=== PATIENT | male | born 1935 | race Caucasian/White ===

== ENCOUNTER 2017-01-17 10:04 | Inpatient (IN) ==
--- NOTE | 2017-01-17 10:14 | Emergency Department Report ---
General Adult HPI - General Chief complaint: Medical Emergency Stated complaint: low hemoglobin Time Seen by Provider: 01/17/17 10:14 Source: patient, family Mode of arrival: ambulatory Limitations: no limitations - History of Present Illness HPI narrative: Patient is an 81-year-old male presents emergent for further evaluation of low hemoglobin. Patient has been having anemia problems following Dr. Lawson's office had CBC drawn 01/12 showing hemoglobin 8.6, repeat 01/14 showing hemoglobin 7.6... Patient increasing weakness, now tachycardic with low O2 sats. Patient normally uses oxygen at night, however/today's acute oxygen during the day. Patient told by doctors office to present to the ER for evaluation. Onset (ago): day(s) - Related Data Home Medications Medication Instructions Recorded Confirmed Albuterol Sulfate [Proair Hfa] 1 puff INH Q4H PRN 01/17/17 01/17/17 Aspirin [Adult Low Dose Aspirin EC] 81 mg PO DAILY 01/17/17 01/17/17 Bumetanide Tab [Bumex Tab] 1 mg PO BID 01/17/17 01/17/17 Carvedilol [Carvedilol] 12.5 mg PO DAILY 01/17/17 01/17/17 Clopidogrel Bisulfate [Clopidogrel] 75 mg PO DAILY 01/17/17 01/17/17 Glimepiride [Amaryl] 1 mg PO DAILY 01/17/17 01/17/17 Levothyroxine Sodium 25 mcg PO ACB 01/17/17 01/17/17 Multivitamin [Multivitamins] 1 cap PO DAILY 01/17/17 01/17/17 Coggon-3 Fatty Acids [Coggon-3] 3,000 mg PO DAILY 01/17/17 01/17/17 Potassium Chloride [Klor-Con 10] 5 meq PO DAILY 01/17/17 01/17/17 Spironolactone [Aldactone] 25 mg PO DAILY 01/17/17 01/17/17 Allergies Allergy/AdvReac Type Severity Reaction Status Date / Time No Known Allergies Allergy Verified 01/17/17 10:48 Review of Systems Constitutional: Reports: weakness. Denies: fever, chills ENT: Denies: throat pain, dental pain Cardiovascular: Reports: dyspnea on exertion. Denies: chest pain, palpitations Respiratory: Denies: cough, dyspnea Gastrointestinal: Denies: abdominal pain, nausea, vomiting, diarrhea, constipation Genitourinary: Denies: dysuria, frequency Neurological: Denies: headache, weakness Psychiatric: Denies: anxiety, depression PFS Patient Stated Medical History Syncope Yes Cataracts Yes Hypertension Yes Myocardial Infarction Yes Chronic Obstructive Pulmonary Yes Disease (COPD) Diabetes Mellitus Type 2 Yes Anemia Yes: PRESENTLY Clinic Medical History (Last Updated 01/14/17 @ 09:59 by Fartun Call MA) Anemia (Chronic Medical) ETIOLOGY UNCLEAR Renal disease (Chronic Medical) Type II diabetes mellitus (Chronic Medical) Hyperlipemia (Chronic Medical) HTN (hypertension) (Chronic Medical) Afib (Chronic Medical) CHF (congestive heart failure) (Chronic Medical) 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 Colonoscopy - Social History Smoking status: Current every day smoker Substance use type: does not use Alcohol intake frequency: does not drink Physical Exam - General General appearance: alert, in no apparent distress - ENT ENT exam: Present: normal oropharynx, mucous membranes moist, TM's normal bilaterally - Neck Neck exam: Present: full ROM, trachea midline - Chest Chest inspection: Present: symmetric chest wall rise. Absent: tenderness - Respiratory Respiratory exam: Present: normal lung sounds bilaterally. Absent: respiratory distress, wheezes, stridor - Cardiovascular Cardiovascular exam: Present: regular rate, normal rhythm, normal heart sounds - Abdominal Exam Abdominal exam: Present: soft. Absent: distention, tenderness, guarding - Rectal Exam Rectal exam: Present: normal inspection, normal rectal tone, heme (+) stool. Absent: black stool, bloody stool, fecal impaction, hemorrhoids, mass, tenderness - Skin Skin exam: Present: warm, dry, pallor - Neurological Exam Neurological exam: Present: alert, oriented X3 - Psychiatric Psychiatric exam: Present: normal affect, normal mood Course Vital Signs Temperature 98 F 01/17/17 10:05 Pulse Rate 106 H 01/17/17 10:05 Respiratory Rate 01/17/17 10:05 Blood Pressure 129/58 01/17/17 10:05 Pulse Oximetry 83 L 01/17/17 10:05 Temperature 98 F 01/17/17 10:05 Pulse Rate 83 01/17/17 10:39 Respiratory Rate 01/17/17 10:05 Blood Pressure 139/63 01/17/17 10:39 Pulse Oximetry 83 L 01/17/17 10:13 Medical Decision Making - Differential Diagnosis acute blood loss anemia, chronic anemia, GI bleed - Medical Records Medical records reviewed: Yes: I reviewed the patient's medical records. - Lab Data Result diagrams: 01/17/17 10:26 01/17/17 10:26 Lab Results 01/17/17 01/17/17 01/17/17 Range/Units 10:26 10:26 10:26 WBC 7.4 (4.5-11.0) T/MM3 RBC 3.08 L (4.50-5.90) M/MM3 Hgb 8.2 L (13.5-17.5) GM/DL Hct 27.6 L (41-53) % MCV 89.6 (80-100) UM3 MCH 26.6 (26-34) UUG MCHC 29.7 L (31-37) GM/DL RDW Std Deviation 53.7 H (36.9-50.2) FL Plt Count 188 (130-400) T/MM3 MPV 9.8 (9.4-12.4) UM3 Immature Gran % (Auto) 0.1 (0.0-0.5) % Neut % (Auto) 83.9 H (33-66) % Lymph % (Auto) 7.6 L (23-45) % Garvin % (Auto) 6.2 (0-9.0) % Eos % (Auto) 1.9 (0-4) % Baso % (Auto) 0.3 (0-2) % Neut # 6.2 (1.8-7.7) T/MM3 Lymph # 0.6 L (1-4.8) T/MM3 Garvin # 0.5 (0-0.8) T/MM3 Eos # 0.1 (0-0.5) T/MM3 Baso # 0.0 (0-0.2) T/MM3 Abs Immat Gran (auto) 0.01 (0.00-0.03) T/MM3 INR 1.42 H (0.99-1.21) APTT 28.5 (24-36) SEC Turbidity < 20 (0-20) Sodium 141 (134-144) MEQ/L Potassium 4.7 (3.6-5) MEQ/L Chloride 104 (98-107) MEQ/L Carbon Dioxide 27 (22-30) MEQ/L Anion Gap 10 (5-15) MEQ/L BUN 55.0 H* (9-20) MG/DL Creatinine 2.1 H (0.8-1.5) MG/DL GFR Calculation 30 BUN/Creatinine Ratio 26 (6-26) RATIO Glucose 159 H (75-110) MG/DL Calculated Osmolality 289 H (261-280) MOSM/KG Calcium 8.9 (8.4-10.2) MG/DL Total Bilirubin 1.00 (0.20-1.30) MG/DL Icterus Index < 2 (0-7) AST 22 (17-59) U/L ALT 33 (21-72) U/L Alkaline Phosphatase 74 (38-126) U/L Total Protein 7.5 (6.3-8.2) G/DL Albumin 3.9 (3.5-5.0) G/DL Globulin 3.6 (2.4-3.6) G/DL Albumin/Globulin Ratio 1.1 (1.1-2.2) RATIO Specimen Hemolysis < 15 (0-25) Blood Type Antibody Screen Crossmatch (AHG) 01/17/17 Range/Units 10:26 WBC (4.5-11.0) T/MM3 RBC (4.50-5.90) M/MM3 Hgb (13.5-17.5) GM/DL Hct (41-53) % MCV (80-100) UM3 MCH (26-34) UUG MCHC (31-37) GM/DL RDW Std Deviation (36.9-50.2) FL Plt Count (130-400) T/MM3 MPV (9.4-12.4) UM3 Immature Gran % (Auto) (0.0-0.5) % Neut % (Auto) (33-66) % Lymph % (Auto) (23-45) % Garvin % (Auto) (0-9.0) % Eos % (Auto) (0-4) % Baso % (Auto) (0-2) % Neut # (1.8-7.7) T/MM3 Lymph # (1-4.8) T/MM3 Garvin # (0-0.8) T/MM3 Eos # (0-0.5) T/MM3 Baso # (0-0.2) T/MM3 Abs Immat Gran (auto) (0.00-0.03) T/MM3 INR (0.99-1.21) APTT (24-36) SEC Turbidity (0-20) Sodium (134-144) MEQ/L Potassium (3.6-5) MEQ/L Chloride (98-107) MEQ/L Carbon Dioxide (22-30) MEQ/L Anion Gap (5-15) MEQ/L BUN (9-20) MG/DL Creatinine (0.8-1.5) MG/DL GFR Calculation BUN/Creatinine Ratio (6-26) RATIO Glucose (75-110) MG/DL Calculated Osmolality (261-280) MOSM/KG Calcium (8.4-10.2) MG/DL Total Bilirubin (0.20-1.30) MG/DL Icterus Index (0-7) AST (17-59) U/L ALT (21-72) U/L Alkaline Phosphatase (38-126) U/L Total Protein (6.3-8.2) G/DL Albumin (3.5-5.0) G/DL Globulin (2.4-3.6) G/DL Albumin/Globulin Ratio (1.1-2.2) RATIO Specimen Hemolysis (0-25) Blood Type A Positive Antibody Screen Negative Crossmatch (AHG) See Detail Disposition Clinical Impression: GI bleed Qualifiers: GI bleed type/associated pathology: unspecified gastrointestinal hemorrhage type Qualified Code(s): K92.2 - Gastrointestinal hemorrhage, unspecified Disposition: Acute Care Hosp, Other Condition: Stable - Seen By: physician
[2017-01-17] MEDS ORDERED: NS 1,000 ML IV SCH (10:15)
[2017-01-17] MEDS: SALINE FLUSH 10ml SYRINGE IVF PRN ×2 (10:35→14:51)
--- OUTSIDE RECORDS SUMMARY | 2017-01-17 10:52 | External Medical Summary ---
:1935 Author Organization [facility] Summary purpose CCDA Sent to [facility] Chief Complaint and Reason for Visit Admit Diagnosis 1 GOUT NOS Problem list No authorized problems tracked for continuity of care are available for this visit. Encounters No authorized problems tracked for encounter diagnoses are available for this visit. Medications No home medications recorded for this patient visit Allergies, adverse reactions, alerts No allergy information is available for this patient. Immunizations No immunizations recorded for this patient visit Relevant diagnostic tests and/or laboratory data No authorized results are available for this patient visit History of procedures Procedure Code Code Type Description Date Performed Performing Physician 57869 CPT-4 OFFICE/OUTPATIENT VISIT 09-25-2014 YEN OBREGON Functional status No functional or cognitive status observations are available for this visit. Vital signs No authorized vital signs are available for this visit. Social history No Social History or smoking status observations were recorded for this visit. ( Unknown if ever smoked.) Treatment Plan No treatment plan text is available for this visit. Hospital discharge instructions No discharge instruction text is available for this visit.
--- OUTSIDE RECORDS SUMMARY | 2017-01-17 10:52 | External Medical Summary ---
:1935 Author Organization [facility] Summary purpose CCDA Sent to [facility] Chief Complaint and Reason for Visit Admit Diagnosis 1 OTH SEBORRHEIC KERATOSIS Problem list No authorized problems tracked for [...] Code Type Description Date Performed Performing Physician 60603 CPT-4 OFFICE/OUTPATIENT VISIT 07-23-2014 YEN OBREGON Functional status No functional or [...]
--- OUTSIDE RECORDS SUMMARY | 2017-01-17 10:52 | External Medical Summary ---
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 Unknown Non Drug Allergy September, Unknown SOCIAL HISTORY No smoking Hx information available PLAN OF CARE Activity Details Follow Up Appt with [facility] when has appt Reason:null VITAL SIGNS Height 70 in 2016-09-13 Weight 165 lbs 2016-09-13 BMI 23.67 kg/m2 2016-09-13 Oximetry 94 % 2016-09-13 Heart Rate 76 /min 2016-09-13 Blood pressure systolic 114 mm Hg 2016-09-13 Blood pressure diastolic 70 mm Hg 2016-09-13 MEDICATIONS Medication Instructions Dosage Frequency Start End Duration Status Date Date Furosemide 40 MG Orally Once a 1 tablet 24h Active day Carvedilol 3.125 Orally bid 1 tab 12h Active MG Plavix 75 MG Orally Once a 1 tablet 24h Active day Levothyroxine 25 Orally Once a 1 tablet on 24h Active MCG day an empty stomach in the morning Warfarin Sodium 5 Orally Once a 1 tablet 24h Active MG day Simvastatin 20 MG Orally Once a 1 tablet in 24h Active day the evening Carvedilol 6.25 Orally bid 1 tab 12h Active MG Benazepril-Hydroc Orally Once a 1 tablet 24h Active hlorothiazide day .5 MG Isosorbide Orally Twice a 1 tablet 12h Active Mononitrate 15 mg day Potassium Orally Once a 1 tablet 24h Active Chloride ER 10 day with food MEQ RESULTS No Results PROCEDURES Procedure Date Ordered Related Diagnosis Body Site Office Visit, Est Pt., Level 3 September 13, 2016 IMMUNIZATIONS No Known Immunizations
--- OUTSIDE RECORDS SUMMARY | 2017-01-17 10:52 | External Medical Summary ---
:1935 Author Organization [facility] Summary purpose CCDA Sent to [facility] Chief Complaint and Reason for Visit [...] Code Type Description Date Performed Performing Physician 71086 CPT-4 DESTRUCT PREMALG 07-23-2014 YENWaldo SHINE LESION 42252 CPT-4 DESTRUCT PREMALG LES 07-23-2014 YEN SHINE 2-14 83764 CPT-4 BIOPSY SKIN LESION 07-23-2014 YEN SHINE 07699 CPT-4 BIOPSY SKIN ADD-ON 07-23-2014 YEN SHINE Functional status No functional or cognitive status [...]
--- OUTSIDE RECORDS SUMMARY | 2017-01-17 10:52 | External Medical Summary ---
:1935 Author Organization [facility] Summary purpose CCDA Sent to [facility] Chief Complaint and Reason for Visit Admit Diagnosis 1 DM2/NOS UNCOMP NSU Problem list No authorized problems tracked for continuity of care are available for this visit. Encounters No authorized problems tracked for encounter diagnoses are available for this visit. Medications No home medications recorded for this patient visit Allergies, adverse reactions, alerts No allergy information is available for this patient. Immunizations No immunizations recorded for this patient visit Relevant diagnostic tests and/or laboratory data RESULTS Chemistry Group [id number]:22:00 Result Normal Range Units Albumin 4.1 3.5-5.0 g/dl Total Protein 7.0 6.3-8.2 g/dl AST 24 17-59 U/L ALP 76 38-126 U/L ALT 30 21-72 U/L Bilirubin Total 1.0 0.2-1.3 mg/dl Sodium 144 137-145 mmol/L Potassium 4.0 3.6-5.0 mmol/L Chloride 107 98-107 mmol/L CO2 25 22-30 mmol/L BUN 20 9-20 mg/dl Creatinine 1.2 0.8-1.5 mg/dl Glucose 103 75-110 mg/dl Calcium 9.0 8.4-10.2 mg/dl AG Ratio 1.4 1.1-2.2 g/dl Globulin 3.0 2.3-3.5 g/dl Cholesterol 128 0-200 mg/dl Triglycerides 122 0-150 mg/dl HDL L 38 40-60 mg/dl LDL 66 0-130 mg/dl VLDL 24 5-40 mg/dl Cholesterol/HDL Ratio 3.38 0-5 Ratio Coagulation Group :22:00 Result Normal Range Units Protime HC 65.4 Sec -Result verified by repeat analysis./mkv -Critical value reported verbally to EDUARDO Salinas 11/20/14 @ 1028./mkv INR HC 6.79 0.9-1.3 NORMAL (NON OAT) 2.0-3.0 THERAPEUTIC ( OAT) 2.5-3.5 HEART VALVE/EMBOLISM (OAT) PROTIME NORMAL RANGE=9.3 - 11.4 Seconds -Result verified by repeat analysis./mkv -Critical value reported verbally to EDUARDO Salinas 11/20/14 @ 1028./mkv Comprehensive Metabolic Panel :22:00 Result Normal Range Units Albumin 4.1 3.5-5.0 g/dl Total Protein 7.0 6.3-8.2 g/dl AST 24 17-59 U/L ALP 76 38-126 U/L ALT 30 21-72 U/L Bilirubin Total 1.0 0.2-1.3 mg/dl Sodium 144 137-145 mmol/L Potassium 4.0 3.6-5.0 mmol/L Chloride 107 98-107 mmol/L CO2 25 22-30 mmol/L BUN 20 9-20 mg/dl Creatinine 1.2 0.8-1.5 mg/dl Glucose 103 75-110 mg/dl Calcium 9.0 8.4-10.2 mg/dl AG Ratio 1.4 1.1-2.2 g/dl Globulin 3.0 2.3-3.5 g/dl Lipid Profile :22:00 Result Normal Range Units Cholesterol 128 0-200 mg/dl Triglycerides 122 0-150 mg/dl HDL L 38 40-60 mg/dl LDL 66 0-130 mg/dl VLDL 24 5-40 mg/dl Cholesterol/HDL Ratio 3.38 0-5 Ratio Hepatic Function Profile :22:00 Result Normal Range Units Albumin 4.1 3.5-5.0 g/dl Total Protein 7.0 6.3-8.2 g/dl AG Ratio 1.4 1.1-2.2 g/dl Globulin 3.0 2.3-3.5 g/dl AST 24 17-59 U/L ALP 76 38-126 U/L ALT 30 21-72 U/L Bilirubin Total 1.0 0.2-1.3 mg/dl Basic Metabolic Panel :22:00 Result Normal Range Units Sodium 144 137-145 mmol/L Potassium 4.0 3.6-5.0 mmol/L Chloride 107 98-107 mmol/L CO2 25 22-30 mmol/L BUN 20 9-20 mg/dl Creatinine 1.2 0.8-1.5 mg/dl Glucose 103 75-110 mg/dl Calcium 9.0 8.4-10.2 mg/dl Electrolyte Panel [id number]:00 Result Normal Range Units Sodium 144 137-145 mmol/L Potassium 4.0 3.6-5.0 mmol/L Chloride 107 98-107 mmol/L CO2 25 22-30 mmol/L History of procedures Procedure Code Code Type Description Date Performed Performing Physician 85192 CPT-4 ROUTINE VENIPUNCTURE 11-20-2014 AD MCDANIEL 91189 CPT-4 GLYCOSYLATED HEMOGLOBIN 11-20-2014 AD MCDANIEL TEST G0103 CPT-4 PSA SCREENING 11-20-2014 AD MCDANIEL 98353 CPT-4 ASSAY THYROID STIM 11-20-2014 AD MCDANIEL HORMONE 60501 CPT-4 LIPID PANEL 11-20-2014 AD MCDANIEL 22173 CPT-4 COMPREHEN METABOLIC 11-20-2014 AD MCDANIEL PANEL 10395 CPT-4 PROTHROMBIN TIME 11-20-2014 AD MCDANIEL Functional status No functional or cognitive status [...]
--- OUTSIDE RECORDS SUMMARY | 2017-01-17 10:52 | External Medical Summary ---
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 Unknown Non Drug Allergy Aug, Unknown SOCIAL HISTORY No smoking Hx information available PLAN OF CARE VITAL SIGNS Height 70 in 2016-08-12 Weight 164.2 lbs 2016-08-12 BMI 23.56 kg/m2 2016-08-12 Oximetry 96 % 2016-08-12 Heart Rate 64 /min 2016-08-12 Blood pressure systolic 120 mm Hg 2016-08-12 Blood pressure diastolic 70 mm Hg 2016-08-12 MEDICATIONS Medication Instructions Dosage Frequency Start End Duration Status Date Date Furosemide 40 MG Orally Once a 1 tablet 24h Active day Plavix 75 MG Orally Once a 1 tablet 24h Active day Warfarin Sodium 5 Orally Once a 1 tablet 24h Active MG day Isosorbide Orally Twice a 1 tablet 12h Active Mononitrate 15 mg day Benazepril-Hydroc Orally Once a 1 tablet 24h Active hlorothiazide day 20-12.5 MG Carvedilol 3.125 Orally bid 1 tab 12h Active MG Klor-Con 10 10 Orally qd 1 tablet 24h Active MEQ with food Metformin HCl 500 Orally Twice a 1 tablet 12h Active MG day with meals Levothyroxine 25 Orally Once a 1 tablet on 24h Active MCG day an empty stomach in the morning RESULTS Name Result Date Reference Range AtriaECW PROCEDURES Procedure Date Ordered Related Diagnosis Body Site ELECTROCARDIOGRAM, COMPLETE August 12, 2016 Office Visit, Est Pt., Level 3 August 12, 2016 IMMUNIZATIONS No Known Immunizations
--- OUTSIDE RECORDS SUMMARY | 2017-01-17 10:52 | External Medical Summary ---
:1935 Author Organization [facility] Summary purpose CCDA Sent to [facility] Chief Complaint and Reason for Visit No authorized Reason for Visit (Admitting Diagnosis) is available for this visit. Problem list No authorized problems tracked for [...] Relevant diagnostic tests and/or laboratory data RESULTS Coagulation Group [id number]:00 Result Normal Range Units Protime 20.2 Sec INR 2.05 0.9-1.3 NORMAL (NON OAT) 2.0-3.0 THERAPEUTIC ( OAT) 2.5-3.5 HEART VALVE/EMBOLISM (OAT) PROTIME NORMAL RANGE=9.3 - 11.4 Seconds History of procedures Procedure Code Code Type Description Date Performed Performing Physician 51595 CPT-4 PROTHROMBIN TIME 04-16-2015 YEN SHINE 48719 CPT-4 ROUTINE VENIPUNCTURE 04-16-2015 YEN SHINE Functional status No functional or [...]
--- OUTSIDE RECORDS SUMMARY | 2017-01-17 10:52 | External Medical Summary ---
:1935 Author Organization [facility] Summary purpose CCDA Sent to [facility] Chief Complaint and Reason for Visit No authorized Reason for Visit (Admitting Diagnosis) is available for this visit. Problem list No authorized problems tracked for continuity of care are available for this visit. Encounters No authorized problems tracked for encounter diagnoses are available for this visit. Medications No medications recorded for this patient visit Allergies, adverse reactions, alerts No allergy information is available for this patient. Immunizations No immunizations recorded for this patient visit Relevant diagnostic tests and/or laboratory data RESULTS Coagulation Group [id number]:00 Result Normal Range Units Protime 19.5 Sec INR 1.98 0.9-1.3 NORMAL (NON OAT) 2.0-3.0 THERAPEUTIC ( OAT) 2.5-3.5 HEART VALVE/EMBOLISM (OAT) PROTIME NORMAL RANGE=9.3 - 11.4 Seconds History of procedures Procedure Code Code Type Description Date Performed Performing Physician 08136 CPT-4 ROUTINE VENIPUNCTURE 06-12-2015 YEN SHINE 80066 CPT-4 PROTHROMBIN TIME 06-12-2015 YEN SHINE L0625 CPT-4 LO FLEXIBL L1-BELOW L5 06-12-2015 YEN SHINE PRE 17831 CPT-4 OFFICE/OUTPATIENT VISIT, 06-12-2015 YEN SHINE EST Functional status No functional or cognitive status [...]
--- OUTSIDE RECORDS SUMMARY | 2017-01-17 10:52 | External Medical Summary ---
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
--- OUTSIDE RECORDS SUMMARY | 2017-01-17 10:52 | External Medical Summary ---
:1935 Author Organization [facility] Summary purpose CCDA Sent to [facility] Chief Complaint and Reason for Visit Admit Diagnosis 1 PAIN IN LIMB Problem list No authorized problems tracked for [...] tests and/or laboratory data RESULTS Chemistry Group [id number]:00 Result Normal Range Units Uric Acid 6.9 2.5-8.5 mg/dl History of procedures Procedure Code Code Type Description Date Performed Performing Physician 60402 CPT-4 ASSAY OF BLOOD/URIC 09-25-2014 YEN RL ACID 89134 CPT-4 ROUTINE VENIPUNCTURE 09-25-2014 YEN RL Functional status No functional or cognitive status [...]
--- OUTSIDE RECORDS SUMMARY | 2017-01-17 10:52 | External Medical Summary ---
:1935 Author Organization [facility] Summary purpose CCDA Sent to [facility] Chief Complaint and Reason for Visit Admit Diagnosis 1 ATRIAL FIBRILLATION Problem list No authorized problems tracked for [...] tests and/or laboratory data RESULTS Coagulation Group [id number]:00 Result Normal Range Units Protime 16.5 Sec INR 1.67 0.9-1.3 NORMAL (NON OAT) 2.0-3.0 THERAPEUTIC ( OAT) 2.5-3.5 HEART VALVE/EMBOLISM (OAT) PROTIME NORMAL RANGE=9.3 - 11.4 Seconds History of procedures Procedure Code Code Type Description Date Performed Performing Physician 69656 CPT-4 ROUTINE VENIPUNCTURE 12-18-2014 YEN SHINE 83594 CPT-4 PROTHROMBIN TIME 12-18-2014 YEN SHINE Functional status No functional or [...]
--- OUTSIDE RECORDS SUMMARY | 2017-01-17 10:53 | External Medical Summary ---
:1935 Author Organization [facility] Summary purpose CCDA Sent to [facility] Chief Complaint and Reason for Visit No [...] tests and/or laboratory data RESULTS Coagulation Group [id number]:00 Result Normal Range Units Protime 19.2 Sec INR 1.95 0.9-1.3 NORMAL (NON OAT) 2.0-3.0 THERAPEUTIC ( OAT) 2.5-3.5 HEART VALVE/EMBOLISM (OAT) PROTIME NORMAL RANGE=9.3 - 11.4 Seconds History of procedures Procedure Code Code Type Description Date Performed Performing Physician 75876 CPT-4 ROUTINE VENIPUNCTURE 04-07-2015 YEN SHINE 98145 CPT-4 PROTHROMBIN TIME 04-07-2015 YEN SHINE Functional status No functional or [...]
--- OUTSIDE RECORDS SUMMARY | 2017-01-17 10:53 | External Medical Summary ---
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
--- OUTSIDE RECORDS SUMMARY | 2017-01-17 10:53 | External Medical Summary ---
:1935 Author Organization [facility] Summary purpose CCDA Sent to [facility] Chief Complaint and Reason for Visit [...] tests and/or laboratory data RESULTS Coagulation Group [id number]:25:00 Result Normal Range Units Protime 20.7 Sec INR 2.10 0.9-1.3 NORMAL (NON OAT) 2.0-3.0 THERAPEUTIC ( OAT) 2.5-3.5 HEART VALVE/EMBOLISM (OAT) PROTIME NORMAL RANGE=9.3 - 11.4 Seconds History of procedures Procedure Code Code Type Description Date Performed Performing Physician 38429 CPT-4 ROUTINE VENIPUNCTURE 12-25-2014 ESTRELLA MARTE 32527 CPT-4 PROTHROMBIN TIME 12-25-2014 ESTRELLA MARTE Functional status No functional or cognitive status [...]
--- OUTSIDE RECORDS SUMMARY | 2017-01-17 10:53 | External Medical Summary ---
:1935 Author Organization [facility] Summary purpose CCDA Sent to [facility] Chief Complaint and Reason for [...] tests and/or laboratory data RESULTS Coagulation Group [id number]:05:00 Result Normal Range Units Protime 21.2 Sec INR 2.15 0.9-1.3 NORMAL (NON OAT) 2.0-3.0 THERAPEUTIC ( OAT) 2.5-3.5 HEART VALVE/EMBOLISM (OAT) PROTIME NORMAL RANGE=9.3 - 11.4 Seconds History of procedures Procedure Code Code Type Description Date Performed Performing Physician 59221 CPT-4 ROUTINE VENIPUNCTURE 03-07-2015 YEN SHINE 11740 CPT-4 PROTHROMBIN TIME 03-07-2015 YEN SHINE Functional status No functional or [...]
--- OUTSIDE RECORDS SUMMARY | 2017-01-17 10:53 | External Medical Summary ---
:1935 Author Organization [facility] Summary purpose CCDA Sent to [facility] Chief Complaint and Reason for Visit No authorized Reason for Visit (Admitting Diagnosis) is available for this visit. Problem list No authorized problems tracked for continuity of care are available for this visit. Encounters No authorized problems tracked for encounter diagnoses are available for this visit. Medications No medications recorded for this patient visit Allergies, adverse reactions, alerts Allergen Category Ingredient Status Reaction Severity Onset No Known Drug No known drug No Known Drug Active Allergies allergies Allergies Immunizations No immunizations recorded for this patient visit Relevant diagnostic tests and/or laboratory data RESULTS Chemistry Group :02:00 Result Normal Range Units Albumin 4.3 3.5-5.0 g/dl Total Protein H 8.3 6.3-8.2 g/dl AST 49 17-59 U/L ALP 84 38-126 U/L ALT 30 21-72 U/L Bilirubin Total 1.1 0.2-1.3 mg/dl Sodium 141 137-145 mmol/L Potassium 4.8 3.6-5.0 mmol/L Chloride 100 98-107 mmol/L CO2 26 22-30 mmol/L BUN H 37 9-20 mg/dl Creatinine H 2.11 0.8-1.5 mg/dl Glucose H 126 75-110 mg/dl Calcium 9.3 8.4-10.2 mg/dl AG Ratio 1.1 1.1-2.2 g/dl Globulin H 4.0 2.3-3.5 g/dl CBC :02:00 Result Normal Range Units WBC 8.40 4.5-11.0 x 103/uL RBC L 4.45 4.7-6.1 x 106/uL Hemoglobin L 13.5 14.0-18.0 g/dl Hematocrit L 40.8 42-52 % MCV 91.7 80-100 FL MCH 30.3 26-34 pg MCHC 33.1 31-36 g/dl RDW H 15.3 11.5-14.5 % Platelets L 134 150-500 x 103/uL Hemogram :02:00 Result Normal Range Units WBC 8.40 4.5-11.0 x 103/uL RBC L 4.45 4.7-6.1 x 106/uL Hemoglobin L 13.5 14.0-18.0 g/dl Hematocrit L 40.8 42-52 % MCV 91.7 80-100 FL MCH 30.3 26-34 pg MCHC 33.1 31-36 g/dl Platelets L 134 150-500 x 103/uL Comprehensive Metabolic Panel :02:00 Result Normal Range Units Albumin 4.3 3.5-5.0 g/dl Total Protein H 8.3 6.3-8.2 g/dl AST 49 17-59 U/L ALP 84 38-126 U/L ALT 30 21-72 U/L Bilirubin Total 1.1 0.2-1.3 mg/dl Sodium 141 137-145 mmol/L Potassium 4.8 3.6-5.0 mmol/L Chloride 100 98-107 mmol/L CO2 26 22-30 mmol/L BUN H 37 9-20 mg/dl Creatinine H 2.11 0.8-1.5 mg/dl Glucose H 126 75-110 mg/dl Calcium 9.3 8.4-10.2 mg/dl AG Ratio 1.1 1.1-2.2 g/dl Globulin H 4.0 2.3-3.5 g/dl Hepatic Function Profile :02:00 Result Normal Range Units Albumin 4.3 3.5-5.0 g/dl Total Protein H 8.3 6.3-8.2 g/dl AG Ratio 1.1 1.1-2.2 g/dl Globulin H 4.0 2.3-3.5 g/dl AST 49 17-59 U/L ALP 84 38-126 U/L ALT 30 21-72 U/L Bilirubin Total 1.1 0.2-1.3 mg/dl Basic Metabolic Panel :02:00 Result Normal Range Units Sodium 141 137-145 mmol/L Potassium 4.8 3.6-5.0 mmol/L Chloride 100 98-107 mmol/L CO2 26 22-30 mmol/L BUN H 37 9-20 mg/dl Creatinine H 2.11 0.8-1.5 mg/dl Glucose H 126 75-110 mg/dl Calcium 9.3 8.4-10.2 mg/dl Electrolyte Panel [id number]:02:00 Result Normal Range Units Sodium 141 137-145 mmol/L Potassium 4.8 3.6-5.0 mmol/L Chloride 100 98-107 mmol/L CO2 26 22-30 mmol/L Manual Diff [id number]:02:00 Result Normal Range Units Bands 5.0 0-5 % Segmented Neutrophils H 82.0 55-75 % Lymphocytes L 3.0 20-40 % Monocytes H 9.0 1-6 % Basophils 1.0 0-1 % Bands 5.0 0-5 % Segmented Neutrophils H 82.0 55-75 % Lymphocytes L 3.0 20-40 % Monocytes H 9.0 1-6 % Basophils 1.0 0-1 % Culture Blood [id number]:52:00 Result Normal Range Units Source BLOOD Result Amended on 2016-07-28 at 06:56:50. Previous status was ND. Special Requests LEFT FOREARM 2 0F 2 Culture Blood Result SEE BELOW BLOOD CULTURE No Growth Corrected on 07/27 AT 1545: Previously Reported as SEE BELOW Status Final Testing Performed: [address] [address] [id number]:43:00 Result Normal Range Units Source BLOOD Result Amended on 2016-07-28 at 06:56:49. Previous status was ND. Special Requests LEFT WRIST 1 0F 2 Culture Blood Result SEE BELOW BLOOD CULTURE No Growth Corrected on 07/27 AT 1544: Previously Reported as SEE BELOW Status Final Testing Performed: [address] [address] History of procedures Procedure Code Code Type Description Date Performed Performing Physician J2765 CPT-4 METOCLOPRAMIDE HCL 07-20-2016 GERARDO STANG INJECTION 53476 CPT-4 COMPREHEN METABOLIC 07-20-2016 GERARDO STANG PANEL 21892 CPT-4 BLOOD CULTURE FOR 07-20-2016 GERARDO STANG BACTERIA 66250 CPT-4 ELECTROCARDIOGRAM, 07-20-2016 GERARDO STANG TRACING 20481 CPT-4 ASSAY OF TROPONIN, 07-20-2016 GERARDO STANG QUANT 63887 CPT-4 CREATINE, MB FRACTION 07-20-2016 GERARDO STANG 22855 CPT-4 CHEST X-RAY 07-20-2016 GERARDOWaldo GRAY 66712 CPT-4 BLOOD CULTURE FOR 07-20-2016 GERARDO PANCHITOG BACTERIA 95060 CPT-4 ASSAY THYROID STIM 07-20-2016 GERARDO STANMildred HORMONE 76287 CPT-4 ROUTINE VENIPUNCTURE 07-20-2016 GERARDO STANG 21139 CPT-4 ROUTINE VENIPUNCTURE 07-20-2016 GERARDO PANCHITOG J7030 CPT-4 INFUSION, NS, 1000 CC 07-20-2016 GERARDOWaldo GRAY A9270 CPT-4 NON-COVERED ITEM OR 07-20-2016 GERARDO STANG SERVICE J2543 CPT-4 PIPERACILLIN NA 07-20-2016 GERARDOWaldo FLANAGANMildred J7050 CPT-4 NS SOLUTION 250 CC 07-20-2016 GERARDO STANG INFUSION J2765 CPT-4 METOCLOPRAMIDE HCL 07-20-2016 GERARDOWaldo FLANAGANMildred INJECTION 03428 CPT-4 HYDRATE IV INFUSION, 07-20-2016 AD MCDANIEL ADD-ON 02517 CPT-4 TX/PRO/DX INJ NEW DRUG 07-20-2016 AD MCDANIEL ADDON 01719 CPT-4 THER/PROPH/DIAG INJ, IV 07-20-2016 AD MCDANIEL PUSH 68545 CPT-4 EMERGENCY DEPT VISIT 07-20-2016 AD MCDANIEL 63300 CPT-4 EMERGENCY DEPT VISIT 07-20-2016 AD MCDANIEL 18270 CPT-4 BL SMEAR W/DIFF WBC 07-20-2016 AD MCDANIEL COUNT 43039 CPT-4 COMPLETE CBC, AUTOMATED 07-20-2016 AD MCDANIEL Functional status Cognitive Status Finding Observation Time Level of Consciousne Alert 72-86-481789:30 Oriented to Person Yes 98-45-140172:[address] Yes [id number]:30 Oriented to Time Yes [id number]:30 Vital signs Type Value Date Respirations 37 87-10-924604:51 Pulse 113 36-69-491609:30 O2 Saturation 91% 63-42-603013:30 Systolic Blood Press 134mm/HG 20-46-264841:30 Diastolic Blood Pres 66mm/HG 68-06-447912:30 Temperature (Fahr) 101Degrees 68-35-669432:30 Height 72in 63-34-614263:53 Weight 155LB :53 Social history Type Value Smoking Status UNKNOWN IF EVER SMOKED Treatment Plan No treatment plan text is available for this visit. Hospital discharge instructions No discharge instruction text is available for this visit.
--- OUTSIDE RECORDS SUMMARY | 2017-01-17 10:53 | External Medical Summary ---
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
--- OUTSIDE RECORDS SUMMARY | 2017-01-17 10:53 | External Medical Summary ---
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
--- OUTSIDE RECORDS SUMMARY | 2017-01-17 10:53 | External Medical Summary ---
:1935 Author Organization [facility] Summary purpose CCDA Sent to [facility] Chief Complaint and Reason for Visit No [...] tests and/or laboratory data RESULTS Chemistry Group :40:00 Result Normal Range Units Albumin 3.8 3.5-5.0 g/dl Total Protein 6.9 6.3-8.2 g/dl AST 23 17-59 U/L ALP 89 38-126 U/L ALT 30 21-72 U/L Bilirubin Total .7 0.2-1.3 mg/dl Sodium 138 137-145 mmol/L Potassium 4.2 3.6-5.0 mmol/L Chloride 100 98-107 mmol/L CO2 27 22-30 mmol/L BUN H 23 9-20 mg/dl Creatinine 1.16 0.8-1.5 mg/dl Glucose H 112 75-110 mg/dl Calcium 8.7 8.4-10.2 mg/dl AG Ratio 1.2 1.1-2.2 g/dl Globulin 3.1 2.3-3.5 g/dl Cholesterol H 210 0-200 mg/dl Triglycerides 91 0-150 mg/dl HDL 47 40-60 mg/dl LDL H 145 0-130 mg/dl VLDL 18 5-40 mg/dl Cholesterol/HDL Ratio 4.51 0-5 Ratio Coagulation Group :40:00 Result Normal Range Units Protime 19.9 Sec INR 2.02 0.9-1.3 NORMAL (NON OAT) 2.0-3.0 THERAPEUTIC ( OAT) 2.5-3.5 HEART VALVE/EMBOLISM (OAT) PROTIME NORMAL RANGE=9.3 - 11.4 Seconds Comprehensive Metabolic Panel :40:00 Result Normal Range Units Albumin 3.8 3.5-5.0 g/dl Total Protein 6.9 6.3-8.2 g/dl AST 23 17-59 U/L ALP 89 38-126 U/L ALT 30 21-72 U/L Bilirubin Total .7 0.2-1.3 mg/dl Sodium 138 137-145 mmol/L Potassium 4.2 3.6-5.0 mmol/L Chloride 100 98-107 mmol/L CO2 27 22-30 mmol/L BUN H 23 9-20 mg/dl Creatinine 1.16 0.8-1.5 mg/dl Glucose H 112 75-110 mg/dl Calcium 8.7 8.4-10.2 mg/dl AG Ratio 1.2 1.1-2.2 g/dl Globulin 3.1 2.3-3.5 g/dl Lipid Profile :40:00 Result Normal Range Units Cholesterol H 210 0-200 mg/dl Triglycerides 91 0-150 mg/dl HDL 47 40-60 mg/dl LDL H 145 0-130 mg/dl VLDL 18 5-40 mg/dl Cholesterol/HDL Ratio 4.51 0-5 Ratio Hepatic Function Profile :40:00 Result Normal Range Units Albumin 3.8 3.5-5.0 g/dl Total Protein 6.9 6.3-8.2 g/dl AG Ratio 1.2 1.1-2.2 g/dl Globulin 3.1 2.3-3.5 g/dl AST 23 17-59 U/L ALP 89 38-126 U/L ALT 30 21-72 U/L Bilirubin Total .7 0.2-1.3 mg/dl Basic Metabolic Panel :40:00 Result Normal Range Units Sodium 138 137-145 mmol/L Potassium 4.2 3.6-5.0 mmol/L Chloride 100 98-107 mmol/L CO2 27 22-30 mmol/L BUN H 23 9-20 mg/dl Creatinine 1.16 0.8-1.5 mg/dl Glucose H 112 75-110 mg/dl Calcium 8.7 8.4-10.2 mg/dl Electrolyte Panel [id number]:40:00 Result Normal Range Units Sodium 138 137-145 mmol/L Potassium 4.2 3.6-5.0 mmol/L Chloride 100 98-107 mmol/L CO2 27 22-30 mmol/L Microalbumin Urine [id number]:45:00 Result Normal Range Units Creatinine, Urine 80 mg/dL Microalbumin 1.23 <30 mg/dL MA/Creatinine Ratio 15 <30 mg/g Testing Performed: [facility], [address] [place] [address] History of procedures Procedure Code Code Type Description Date Performed Performing Physician 65149 CPT-4 ROUTINE VENIPUNCTURE 07-08-2015 YEN SHNIE 06353 CPT-4 GLYCOSYLATED HEMOGLOBIN 07-08-2015 YEN SHINE TEST 45983 CPT-4 COMPREHEN METABOLIC 07-08-2015 YEN SHINE PANEL 80521 CPT-4 ASSAY THYROID STIM 07-08-2015 YEN SHINE HORMONE 67335 CPT-4 LIPID PANEL 07-08-2015 YEN SHINE 48603 CPT-4 MICROALBUMIN, 07-08-2015 YEN SIHNE QUANTITATIVE 28774 CPT-4 ASSAY OF URINE 07-08-2015 YEN SHINE CREATININE 45534 CPT-4 PROTHROMBIN TIME 07-08-2015 YEN SHINE Functional status No functional or [...]
--- OUTSIDE RECORDS SUMMARY | 2017-01-17 10:53 | External Medical Summary ---
:1935 Author Organization [facility] Summary purpose CCDA Sent to [facility] Chief Complaint and Reason for Visit Admit [...] tests and/or laboratory data RESULTS Coagulation Group [id number]:30:00 Result Normal Range Units Protime 23.3 Sec INR 2.37 0.9-1.3 NORMAL (NON OAT) 2.0-3.0 THERAPEUTIC ( OAT) 2.5-3.5 HEART VALVE/EMBOLISM (OAT) PROTIME NORMAL RANGE=9.3 - 11.4 Seconds History of procedures Procedure Code Code Type Description Date Performed Performing Physician 85223 CPT-4 ROUTINE VENIPUNCTURE 01-29-2015 YEN SHINE 47554 CPT-4 PROTHROMBIN TIME 01-29-2015 YEN SHINE Functional status No functional or [...]
--- OUTSIDE RECORDS SUMMARY | 2017-01-17 10:53 | External Medical Summary ---
:1935 Author Organization [facility] Summary purpose CCDA Sent to [facility] Chief Complaint and Reason for Visit No [...] tests and/or laboratory data RESULTS Coagulation Group [id number]:54:00 Result Normal Range Units Protime 20.1 Sec INR 2.04 0.9-1.3 NORMAL (NON OAT) 2.0-3.0 THERAPEUTIC ( OAT) 2.5-3.5 HEART VALVE/EMBOLISM (OAT) PROTIME NORMAL RANGE=9.3 - 11.4 Seconds History of procedures Procedure Code Code Type Description Date Performed Performing Physician 60518 CPT-4 PROTHROMBIN TIME 05-14-2015 YEN SHINE 89648 CPT-4 ROUTINE VENIPUNCTURE 05-14-2015 YEN SHINE Functional status No functional or [...]
--- OUTSIDE RECORDS SUMMARY | 2017-01-17 10:53 | External Medical Summary ---
:1935 Author Organization [facility] Summary purpose CCDA Sent to [facility] Chief Complaint and Reason for Visit Admit [...] Code Type Description Date Performed Performing Physician 75009 CPT-4 OFFICE/OUTPATIENT VISIT 11-22-2014 YEN OBREGON Functional status No functional or [...]
--- OUTSIDE RECORDS SUMMARY | 2017-01-17 10:53 | External Medical Summary ---
:1935 Author Organization [facility] Summary purpose CCDA Sent to [facility] Chief Complaint and Reason for Visit [...] tests and/or laboratory data RESULTS Coagulation Group [id number]:07:00 Result Normal Range Units Protime 24.0 Sec INR 2.44 0.9-1.3 NORMAL (NON OAT) 2.0-3.0 THERAPEUTIC ( OAT) 2.5-3.5 HEART VALVE/EMBOLISM (OAT) PROTIME NORMAL RANGE=9.3 - 11.4 Seconds History of procedures Procedure Code Code Type Description Date Performed Performing Physician 46326 CPT-4 PROTHROMBIN TIME 12-05-2014 YEN SHINE 48403 CPT-4 ROUTINE VENIPUNCTURE 12-05-2014 YEN SHINE Functional status No functional or [...]
--- OUTSIDE RECORDS SUMMARY | 2017-01-17 10:53 | External Medical Summary ---
:1935 Author Organization [facility] Summary purpose CCDA Sent to [facility] Chief Complaint and Reason for Visit Admit [...] tests and/or laboratory data RESULTS Coagulation Group [id number]:55:00 Result Normal Range Units Protime 35.6 Sec RESULT VERIFIED BY REPEAT ANALYSIS./DMN RESULT REPORTED VERBALLY TO GABE 11/25/14 @1530./DMN INR HC 3.65 0.9-1.3 NORMAL (NON OAT) 2.0-3.0 THERAPEUTIC ( OAT) 2.5-3.5 HEART VALVE/EMBOLISM (OAT) PROTIME NORMAL RANGE=9.3 - 11.4 Seconds RESULT VERIFIED BY REPEAT ANALYSIS./DMN RESULT REPORTED VERBALLY TO GABE 11/25/14 @1530./DMN History of procedures Procedure Code Code Type Description Date Performed Performing Physician 99497 CPT-4 ROUTINE VENIPUNCTURE 11-25-2014 YNE SHINE 47387 CPT-4 PROTHROMBIN TIME 11-25-2014 YEN SHINE Functional status No functional or [...]
--- OUTSIDE RECORDS SUMMARY | 2017-01-17 10:53 | External Medical Summary ---
:1935 Author Organization [facility] Summary purpose CCDA Sent to [facility] Chief Complaint and Reason for Visit Admit [...] tests and/or laboratory data RESULTS Coagulation Group [id number]:55:00 Result Normal Range Units Protime 19.6 Sec INR 1.99 0.9-1.3 NORMAL (NON OAT) 2.0-3.0 THERAPEUTIC ( OAT) 2.5-3.5 HEART VALVE/EMBOLISM (OAT) PROTIME NORMAL RANGE=9.3 - 11.4 Seconds History of procedures Procedure Code Code Type Description Date Performed Performing Physician 14876 CPT-4 PROTHROMBIN TIME 11-22-2014 YEN SHINE 84375 CPT-4 ROUTINE VENIPUNCTURE 11-22-2014 YEN SHINE Functional status No functional or [...]
--- NOTE | 2017-01-17 13:52 | History & Physical Report ---
<Sherrie Robbins Soraya - Last Filed: 01/17/17 14:43> History of Present Illness Date: 01/17/17 Chief complaint: GI Bleed, Symptomatic anemia HPI: Khanh Hartman is a pleasant 81-year-old male who presented [place] [facility] at the suggestion of his PCP, Dr. Huerta, for evaluation of low hemoglobin. History is obtained from the patient as well as prior medical notes and nursing. He reports that in August 2016, [facility] and was later diagnosed with influenza and pneumonia. He reports that since that time, he has been in and out of the hospital and hasn't felt quite back to normal. He complains of progressive increase in weakness and fatigue with reported increase in sleeping. He also complains of increased dyspnea with exertion. He was seen by Dr. Huerta on 01/12 for a routine exam and INR check and found to have a hemoglobin of 8.6. He was instructed to hold his Coumadin which he takes for his chronic a-fib and start a multivitamin with vitamin K. He had his labs repeated on 12/14 which revealed a decrease in his hemoglobin to 7.6. He was called today with the results and instructed to follow up in the ED for further evaluation. Upon arrival to the ED, vital signs revealed hypertension with blood pressure 142/68, irregular pulse at 92 and pulse ox at 83% room air. Pulse ox improved with supplemental oxygen. He admits to a history of COPD with hypoxia and states that previously he has only needed to use his home oxygen at night but recently he has had increased dyspnea. He was instructed to use his oxygen all day, every day after he was found to have a pulse ox of 85% on room air while at Dr. Huerta office in December. He admits to feeling short of breath today on exam. He admits to central chest congestion and cough every morning and states that once he coughs up his congestion, he breathes fine for the rest of the day. He denies any chest pain, recent fever or chills, abdominal pain, nausea, vomiting, dysuria or hematuria. No hematemesis, melena or hematochezia though he does admit to feeling a little constipated today, which is abnormal for him. Labs were obtained in the ED and revealed anemia with hemoglobin at 8.2. INR was subtherapeutic at 1.42. CMP was relatively unremarkable. BUN was elevated at 55 and SCr was elevated at 2.1. Review of prior medical labs and records reveals that Khanh's baseline SCr is around 2.0-2.1 with known chronic kidney disease. Due to his symptomatic anemia with suspected GI bleed, the hospitalist service was consulted and he was admitted into inpatient status for further evaluation, close monitoring of his hemodynamic stability, IV fluids and surgical consult for anticipated colonoscopy. His length of stay is expected to exceed more than 2 over nights. Review of Systems Comprehensive ROS: completed and no additional positive findings except those as stated - Constitutional Constitutional: Present: daytime sleepiness, fatigue, weakness (generalized). Absent: chills, fever(s), headache(s), night sweats - EENMT Eyes: Absent: change in vision, photophobia Balance: Absent: vertigo, falling to one side Nose: Absent: nosebleeds Mouth/Throat: Absent: sore throat, changes in swallowing, painful swallowing - Cardiovascular Cardiovascular: Present: dyspnea on exertion, edema. Absent: chest pain, palpitations Vascular: Present: pedal edema. Absent: unilateral swelling - Respiratory Respiratory: Present: cough, dyspnea, dyspnea on exertion, wheezing, chest congestion. Absent: hemoptysis, pain on inspiration - Gastrointestinal Gastrointestinal: Present: change in bowel habits (feels constipated today). Absent: abdominal pain, coffee ground emesis, diarrhea, dyspepsia, dysphagia, hematemesis, hematochezia, melena, nausea, vomiting - Genitourinary Genitourinary: Present: nocturia, urinary frequency, urinary incontinence. Absent: dysuria, flank pain, hematuria - Musculoskeletal Musculoskeletal: Present: muscle weakness. Absent: arthralgias, deformity - Integumentary/Breasts Integumentary: Present: wounds, other (darkening of lower extremities consistent with PVD) - Neurological Neurological: Present: weakness (generalized). Absent: focal weakness, headache (s), numbness Neurological Comments: difficulty concentrating - Psychiatric Psychiatric: Present: difficulty concentrating. Absent: depression - Endocrine Endocrine: Absent: palpitations - Hematologic/Lymphatic Hematologic/Lymphatic: Absent: easy bleeding, easy bruising - Allergic/Immunologic Allergic/Immunologic: Absent: tongue swelling [facility] Clinic Medical History Anemia (Chronic Medical) - ETIOLOGY UNCLEAR. Stage III Renal disease GFR 30-60 (Chronic Medical). Type II diabetes mellitus (Chronic Medical). Hyperlipemia (Chronic Medical). Hypertension (Chronic Medical). Afib (Chronic Medical). Congestive Heart Failure (Chronic Medical) 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). COPD with hypoxemia (Chronic). Oxygen Dependent (Chronic). Chronic Anticoagulation with Coumadin (Chronic). Hypothyroid (Chronic). Cataracts (Chronic). Tobacco Dependency (Chronic). Surgical History: Hernia Repair. 5 Vessel CABG-1999. Tonsillectomy. Carotid endartectomy. Family History: Father - , age 91, heart failure. Mother - , age 80's, abdominal cancer (unknown type). 3 sons - all alive, CAD, history of CA, diabetes. - Social History Smoking status: Current every day smoker Packs-years: 50 Time spent discussing smoking cessation with patient: 3 to 10 minutes Substance use type: does not use Alcohol intake frequency: holidays/special occasions only Last drink: unknown Housing: house Household members: spouse (Dasia - 62 years.) Current occupational status: retired (yuan) Current residence: Apartment/Private Home Social history: PCP - Dr. Huerta. Cardio - Dr. Wise. Medications Home Medications Medication Instructions Recorded Confirmed Type Albuterol Sulfate [Proair Hfa] 1 puff INH Q4H PRN 01/17/17 01/17/17 History Aspirin [Adult Low Dose Aspirin EC] 81 mg PO DAILY 01/17/17 01/17/17 History Bumetanide Tab [Bumex Tab] 1 mg PO BID 01/17/17 01/17/17 History Carvedilol [Carvedilol] 12.5 mg PO DAILY 01/17/17 01/17/17 History Clopidogrel Bisulfate [Clopidogrel] 75 mg PO DAILY 01/17/17 01/17/17 History Glimepiride [Amaryl] 1 mg PO DAILY 01/17/17 01/17/17 History Levothyroxine Sodium 25 mcg PO ACB 01/17/17 01/17/17 History Multivitamin [Multivitamins] 1 cap PO DAILY 01/17/17 01/17/17 History Easton-3 Fatty Acids [Easton-3] 3,000 mg PO DAILY 01/17/17 01/17/17 History Potassium Chloride [Klor-Con 10] 5 meq PO DAILY 01/17/17 01/17/17 History Spironolactone [Aldactone] 25 mg PO DAILY 01/17/17 01/17/17 History Allergies Allergy/AdvReac Type Severity Reaction Status Date / Time No Known Allergies Allergy Verified 01/17/17 10:48 Exam Vital Signs: Temperature 98 F 01/17/17 10:05 Pulse Rate 83 01/17/17 10:39 Respiratory Rate 22 01/17/17 10:05 Blood Pressure 139/63 01/17/17 10:39 Pulse Oximetry 83 L 01/17/17 10:13 - Constitutional Present: no acute distress, well nourished, well developed, cooperative - Routine HEENT Exam Head: Present: normocephalic, atraumatic Eye: Present: PERRL. Absent: conjunctival icterus ENT: Present: mucous membranes moist - Routine Neck Exam Present: supple, full ROM, trachea midline - Routine Chest/Breast/Axilla Exam Chest wall: Absent: tenderness - Routine Respiratory Exam Present: accessory muscle use, dyspnea, decreased breath sounds (left>right), wheezes, diminished air movement Comments: increased effort with mild conversational dyspnea; dry cough. - Routine Cardiovascular Exam Present: S1, S2, irregularly irregular - Routine Abdominal Exam Present: soft, normoactive bowel sounds, non distended, non tender - Routine Extremities Exam Present: edema (1+ pitting edema bilateral lower extremities), full ROM, pulses intact. Absent: calf tenderness - Routine Back/Spine/Pelvis Exam Back/Spine: Present: full ROM - Routine Skin Exam Present: dry, pallor, warm, scars (left lower leg - healed surgical incision.), wounds (anterior right davies). Absent: jaundice Comments: skin darkening noted to bilateral lower extremities consistent with PVD. - Routine Neurological Exam Present: alert, moving all extremities, normal speech. Absent: oriented X3 ( person and place), facial asymmetry slow to respond to some questions. - Routine Psychiatric Exam Present: normal affect, cooperative Results - Labs CBC & Chem 7: 01/17/17 10:26 01/17/17 10:26 Assessment and Plan (1) Anemia Problem details: ETIOLOGY UNCLEAR Current visit: No Status: Acute (2) GI bleed Current visit: Yes Status: Acute DVT Prophylaxis: SCD's GI Prophylaxis: Protonix Resuscitation Status: Full Code Assessment and Plan: 01/17/17-Mirakian: ADMIT. ASSESSMENT GI bleed, acute. Symptomatic anemia, acute. A-fib, chronic. Anticoagulation with Coumadin, chronic. COPD with hypoxia and oxygen dependence, chronic. CHF, chronic. * Echo 12/04/15 revealed EF 45% with mild global hypokinesia, mild MR, mild TR, mild pulmonary hypertension with estimated pulmonary artery systolic pressure at 35, mild pulmonary insufficiency. Type II Diabetes, chronic. Hypothyroid, chronic. Hypertension, chronic. Hyperlipidemia, chronic. Kidney Disease, Stage III, chronic. * Baseline SCr ~ 2.0; Scr 1.89 on 10/07/16, SCr 2.38 on 01/12/17. ASCVD with history of prior CA, chronic. PLAN Patient admitted to inpatient status under the care of Dr. Francis. Consult Dr. Brown for surgical evaluation and anticipate endoscopy tomorrow 01/18 to evaluate for GI bleed. Will obtain serial hemoglobins. Type and crossed in ED with 2 units pending. Will hold off on giving as hemoglobin is >8.0 and appears to be trending up. Initiate Protonix 40mg BID for GI protection. Initiate NS 100cc/hr for fluid resuscitation and hydration in light of NPO status in preparation for anticipated endoscopy tomorrow. Monitor daily weight and I&O closely as patient has history of CHF. Last echocardiogram in 11/2015 revealed EF of 45%. Chronic anticoagulation with Coumadin secondary to chronic a -fib. Will hold Coumadin and aspirin now in light of GI bleed. Monitor cardiac function closely on telemetry. SCDs for DVT prophylaxis. INR on admission was 1.42. Recheck INR in AM. Increased dyspnea on presentation with hypoxia noted in ED (SAO2 83% RA). Titrate oxygen as needed to maintain SAO2 > 90%. He has a history of COPD with documented daytime hypoxia since December 2016 as well as history of CHF and has home oxygen. Will obtain CXR now in light of current cough and hypoxia. Encourage incentive spirometry for pulmonary toileting. Will try and obtain sputum culture as patient reports chest congestion. May consider echocardiogram as last one was in 11/2015. He states that he was seen by Dr. Wise (cardiology) last week and was told " every this is fine". DuoNeb QID and Q4Hr for dyspnea. Will hold oral home medications in light of NPO status. Sliding scale insulin as needed for hyperglycemia. Monitor blood sugars closely. Patient is unaware of any previous A1c readings. Clinic records reviewed with not A1c noted in last 3 months. Will obtain A1c now. Smoking cessation counselling provided. Discussed at length, with nursing present, patient's code status wishes. At this time, he wishes to be a FULL CODE.\\ Upon discharge, patient's care will be returned to his PCP, Dr. Huerta. - Time spent with patient greater than 35 minutes Hospital Course Summary Disclaimer: The visit summary below is not to be considered part of the above Progress Note. Hospital Course: 01/17/17 - ADMIT. ASSESSMENT GI bleed, acute. Symptomatic anemia, acute. A-fib, chronic. Anticoagulation with Coumadin, chronic. COPD with hypoxia and oxygen dependence, chronic. CHF, chronic. * Echo 12/04/15 revealed EF 45% with mild global hypokinesia, mild MR, mild TR, mild pulmonary hypertension with estimated pulmonary artery systolic pressure at 35, mild pulmonary insufficiency. Type II Diabetes, chronic. Hypothyroid, chronic. Hypertension, chronic. Hyperlipidemia, chronic. Kidney Disease, Stage III, chronic. * Baseline SCr ~ 2.0; Scr 1.89 on 10/07/16, SCr 2.38 on 01/12/17. ASCVD with history of prior CA, chronic. PLAN Patient admitted to inpatient status under the care of Dr. Francis. Consult Dr. Brown for surgical evaluation and anticipate endoscopy tomorrow 01/18 to evaluate for GI bleed. Will obtain serial hemoglobins. Type and crossed in ED with 2 units pending. Will hold off on giving as hemoglobin is >8.0 and appears to be trending up. Initiate Protonix 40mg BID for GI protection. Initiate NS 100cc/hr for fluid resuscitation and hydration in light of NPO status in preparation for anticipated endoscopy tomorrow. Monitor daily weight and I&O closely as patient has history of CHF. Last echocardiogram in 11/2015 revealed EF of 45%. Chronic anticoagulation with Coumadin secondary to chronic a -fib. Will hold Coumadin and aspirin now in light of GI bleed. Monitor cardiac function closely on telemetry. SCDs for DVT prophylaxis. INR on admission was 1.42. Recheck INR in AM. Increased dyspnea on presentation with hypoxia noted in ED (SAO2 83% RA). Titrate oxygen as needed to maintain SAO2 > 90%. He has a history of COPD with documented daytime hypoxia since December 2016 as well as history of CHF and has home oxygen. Will obtain CXR now in light of current cough and hypoxia. Encourage incentive spirometry for pulmonary toileting. Will try and obtain sputum culture as patient reports chest congestion. May consider echocardiogram as last one was in 11/2015. He states that he was seen by Dr. Wise (cardiology) last week and was told " every this is fine". DuoNeb QID and Q4Hr for dyspnea. Will hold oral home medications in light of NPO status. Sliding scale insulin as needed for hyperglycemia. Monitor blood sugars closely. Patient is unaware of any previous A1c readings. Clinic records reviewed with not A1c noted in last 3 months. Will obtain A1c now. Smoking cessation counselling provided. Discussed at length, with nursing present, patient's code status wishes. At this time, he wishes to be a FULL CODE. Upon discharge, patient's care will be returned to his PCP, Dr. Huerta. <Ho Francis - Last Filed: 01/17/17 19:22> History of Present Illness Date: 01/17/17 [facility] Patient Stated Medical History Syncope Yes Cataracts Yes Hypertension Yes Myocardial Infarction Yes Chronic Obstructive Pulmonary Yes Disease (COPD) Diabetes Mellitus Type 2 Yes Anemia Yes: PRESENTLY Clinic Medical History (Last Updated 01/14/17 @ 09:59 by Fartun Call MA) Anemia (Acute Medical) ETIOLOGY UNCLEAR Renal disease (Chronic Medical) Type II diabetes mellitus (Chronic Medical) Hyperlipemia (Chronic Medical) HTN (hypertension) (Chronic Medical) Afib (Chronic Medical) CHF (congestive heart failure) (Chronic Medical) 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) Exam Vital Signs: Temperature 97.0 F 01/17/17 14:36 Pulse Rate 91 01/17/17 16:15 Respiratory Rate 24 01/17/17 16:30 Blood Pressure 138/85 01/17/17 14:26 Pulse Oximetry 97 01/17/17 16:30 Height/Weight/BMI: Height 1.75 m Weight 72.5 kg Body Mass Index 23.6 Results - Labs CBC & Chem 7: 01/17/17 14:57 01/17/17 10:26 Microbiology Results: Microbiology 01/17/17 14:59 Sputum, Expectorated Gram Stain - Final Not performed 01/17/17 14:59 Sputum, Expectorated Sputum Culture - Preliminary Culture Initiated - Results Pending Assessment and Plan (1) Anemia Problem details: ETIOLOGY UNCLEAR Current visit: No Status: Acute (2) GI bleed Current visit: Yes Status: Acute Assessment and Plan: ASSESSMENT GI bleed, acute. Symptomatic anemia, acute. A-fib, chronic. Anticoagulation with Coumadin, chronic. COPD with hypoxia and oxygen dependence, chronic. CHF, chronic. * Echo 12/04/15 revealed EF 45% with mild global hypokinesia, mild MR, mild TR, mild pulmonary hypertension with estimated pulmonary artery systolic pressure at 35, mild pulmonary insufficiency. Type II Diabetes, chronic. Hypothyroid, chronic. Hypertension, chronic. Hyperlipidemia, chronic. Kidney Disease, Stage III, chronic. * Baseline SCr ~ 2.0; Scr 1.89 on 10/07/16, SCr 2.38 on 01/12/17. ASCVD with history of prior CA, chronic. Tobacco dependency Have independently interviewed and examined pt. Chart reviewed. Case discussed with ED physician and my PA. Care plan developed with my supervision; agree with above. Notes increased SOA for the past several weeks. Some cough/congestion. No pain with breathing. Evaluated by PCP and found to be anemia. Iron levels low so oral Iron started. Recheck on HGB with decrease to 7.9 and ED evaluation urged. In ED, HGB 8.2, but patient hypoxic requiring O2 for support. Is on Coumadin for afib. Admission recommended. Anticipate greater than 2 midnights of care needed. Lungs; decreased CV: irregular AB: soft nt/nd BS decreased MSE: awake alert Plan: Inpatient admission for further evaluation and treatment of his anemia- anticipate greater than 2 midnights of care needed. Hold Blood thinners. HGB rechecked and was 8.0 - with patient's CHF and hypoxia transfusion prudent to improve oxygenation. Will therefore give 1 unit pRBC and monitor. Iron levels low in outpatient setting - will give IV iron once Scopes done. Consult with Dr Brown for evaluation of GI tract. IV Protonix BID for upper GI protection. SCD for DVT prevention. Monitor lab. Continue supplemental O2. Tobacco cessation information. Mucinex DM to decrease cough and congestion. Hospital Course Summary Disclaimer: The visit summary below is not to be considered part of the above Progress Note.
[2017-01-17] MEDS ORDERED: ONDANSETRON 4 MG/2 ML INJECTION IVP PRN (13:57)
[2017-01-17] MEDS ORDERED: ALBUTEROL/IPRATROPIUM 2.5mg-0.5mg/3ml NEB AEROSOL PRN (14:08)
[2017-01-17 14:28] VITALS: BMI 23.6
[2017-01-17] MEDS: PANTOPRAZOLE 40 MG INJECTION IVP SCH ×2 (14:50→21:22)
--- NOTE | 2017-01-17 15:35 | XRay Report ---
EXAM: XR chest 1V LOCATION OF DICTATION: [facility] HISTORY: dyspnea COMPARISON: December 27, 2016 FINDINGS: Postsurgical changes of median sternotomy and CABG. The heart size is mildly enlarged. There are some hazy interstitial opacities demonstrated bilaterally which may reflect a pulmonary edema associated with CHF. There are small bilateral pleural effusions. There is no pneumothorax. The osseous structures are within normal limits for the patient's age. IMPRESSION: Mild cardiomegaly and congestive changes suggested. Hazy interstitial opacities likely reflecting pulmonary edema. Small bilateral pleural effusions. .
[2017-01-17] MEDS ORDERED: NS FLUSH BAG 500ml IV PRN (15:38)
[2017-01-17] MEDS ORDERED: FUROSEMIDE 20 MG/2 ML INJECTION IVP ONE (15:38)
[2017-01-17] MEDS ORDERED: POLYETHYL. GLYCOL 3350 BOTTLE 238 GM PO ONE (16:24)
[2017-01-17] MEDS ORDERED: LIDOCAINE 5% CREAM 15gm TOP PRN (16:24)
[2017-01-17] MEDS: ALBUTEROL/IPRATROPIUM 2.5mg-0.5mg/3ml NEB AEROSOL SCH ×2 (16:29→20:53)
[2017-01-17] MEDS: NS 1,000 ML IV SCH (19:24)
[2017-01-17] MEDS: GUAIFENESIN/D-METHORPHAN 600mg/30mg TABLET PO SCH (21:23)
[2017-01-17] MEDS: INSULIN ASPART 100unit/ml INJECTION SQ PRN (21:23)
[2017-01-18] MEDS: NS 1,000 ML IV SCH (02:36)
[2017-01-18] MEDS ORDERED: FUROSEMIDE 20 MG/2 ML INJECTION IVP ONE (04:17)
[2017-01-18] MEDS ORDERED: FLEET PHOSPHO - SODA ENEMA 133ml PR PRN (07:07)
--- NOTE | 2017-01-18 07:23 | Consultation ---
DATE OF CONSULTATION 01/17/2017 HISTORY OF PRESENT ILLNESS This patient is 81 years old. This patient had a colonoscopy approximately 7 years ago at [place], [place]. The patient is anticoagulated with warfarin because of some underlying atrial fibrillation. This patient had an office visit with Dr. Huerta at the [place] office on 01/12. The patient reported that he felt fatigued at this time. The patient had laboratory studies performed on 01/12/2017. Hemoglobin was 8.6. Hematocrit was 28.3. INR was 3.5. Dr. Huerta did adjust the Coumadin dosage on 01/12/2017. The patient did return back to see Dr. Huerta for an office visit on 01/14/2017 to talk about the anemia which had been found at the time of the laboratory studies performed on 01/12/2070. At the office visit on 01/14/2017, the patient denied any hematochezia or melena. He did have anemia. The patient reported that he had not seen any bleeding anywhere from his body. CBC was repeated on 01/14/2017. Hemoglobin was 7.6 and hematocrit was 25.7 on 2016. White blood cell count was 5,100 at this time which is within the normal range. Platelet count was 162,000 on 01/14/2017 which is in the normal range. INR was 2.8. Dr. Huerta did have the patient hold his Coumadin on 01/14/2017. The patient was started on treatment with iron and vitamin K supplements at this time. The patient was told to go to [facility] over the weekend if he had any new symptoms. When the hemoglobin result of 7.6 became available at the office on 01/17/2017, the patient was directed to go to [facility] for further evaluation of the anemia. At evaluation at the emergency room, the patient did report having increasing weakness. He had some tachycardia. Oxygen saturation was noted to be low. The patient was thought at this time to have some symptomatic anemia. Rectal exam was performed at the emergency room. The patient was found have a Hemoccult positive stool. The stool was not black or bloody. There were no rectal masses. CBC was repeated at the emergency room on 01/17/2017. Hemoglobin was 8.2 and hematocrit was 27.6 at this time. The patient reports at this time that he does ordinarily have daily bowel movements. He has had no recent change in his bowel habits. He has not seen any blood in his stool.. PAST MEDICAL HISTORY Previous Operations: 1. Right inguinal hernia repair. 2. Five-vessel coronary bypass in 1999 at [place], [place]. 3. Colonoscopy in 2009 at [place], [place]. PHYSICAL EXAMINATION VITAL SIGNS: Temperature is 97 degrees Fahrenheit temporal. Pulse is 91. Respiratory rate is 18. Blood pressure is 138/85. Oxygen saturation is 92% on oxygen at 2 liters per minute by nasal cannula. ABDOMEN: The abdomen is soft and nontender. No old incision scars at the abdomen. No abdominal masses. RECTUM: Exam deferred at this time since this was just performed a few hours ago at the [facility]. LABORATORY DATA Hemoglobin was 8.2 and hematocrit was 27.6 at 1026 hours on 01/17/2017 at [facility]. Hemoglobin was 8 and hematocrit was 26.5 at 1457 hours on 01/17/2017 at [facility]. White blood cell count is 5,700. Platelet count is 178,000. INR is 1.42 today at [facility]. IMPRESSION 1. Symptomatic anemia. 2. Hemoccult positive stool. 3. Anticoagulation with Coumadin. RECOMMENDATION Esophagogastroduodenoscopy and colonoscopy. PATIENT EDUCATION I did meet with the patient and his family today and talk with them about having the patient undergo esophagogastroduodenoscopy and colonoscopy for evaluation of this symptomatic anemia and Hemoccult positive stool. Expected benefits of this procedure were reviewed. Alternatives were reviewed. Potential risks and complications were also reviewed including anesthetic risk, bleeding, aspiration, hypoxia, perforation and missed lesions. Bowel prep was discussed. Questions were solicited from the patient and his family. All their questions were answered. The patient does wish to proceed. PLAN 1. Continue to hold Coumadin. 2. Continue to monitor hemoglobin and hematocrit. 3. Bowel prep today. 4. Esophagogastroduodenoscopy and colonoscopy tomorrow. [facility]
[2017-01-18] MEDS ORDERED: CETACAINE SPRAY 20 G ONE (08:02)
[2017-01-18] MEDS ORDERED: LIDOCAINE VISCOUS 2% ORAL LIQUID 15ml ONE (08:02)
[2017-01-18] MEDS: ALBUTEROL/IPRATROPIUM 2.5mg-0.5mg/3ml NEB AEROSOL SCH ×4 (09:05→19:35)
[2017-01-18] MEDS ORDERED: NS 1,000 ML IV SCH (09:45)
--- NOTE | 2017-01-18 10:06 | Anesthesia Preoperative Report ---
Anesthesia Preoperative Record - Date and Time Date: 01/18/17 Preoperative Diagnosis: Anemia, suspect GI bleed NPO Since Date: 01/17/17 NPO Since Time: 00:00 Allergies/Adverse Reactions: Allergies Allergy/AdvReac Type Severity Reaction Status Date / Time No Known Allergies Allergy Verified 01/17/17 10:48 - Vital Signs Vital Signs: Temperature 98.1 F 01/18/17 09:39 Pulse Rate 90 01/18/17 09:40 Respiratory Rate 28 H 01/18/17 09:39 Blood Pressure 142/67 H 01/18/17 09:39 Pulse Oximetry 90 01/18/17 09:39 Height and Weight: Height 1.75 m Weight 71.8 kg Body Mass Index 23.6 - Medications Inpatient Medications: Current Medications Albuterol/Ipratropium (Duoneb) 3 ml AEROSOL Q4H PRN Albuterol/Ipratropium (Duoneb) 3 ml AEROSOL RTQID ESTER Guaifenesin/Dextromethorphan (Mucinex Dm) 1 tab PO BID [facility] Last Admin: 01/17/17 21:23 Dose: 1 tab Sodium Chloride (Normal Saline) 1,000 mls @ 50 mls/hr IV .Q20H ESTER Last Infusion: 01/18/17 05:28 Dose: 50 mls/hr Sodium Chloride (Normal Saline) 1,000 mls @ 30 mls/hr IV .Q24H [facility] Last Admin: 01/18/17 09:49 Dose: 30 mls/hr Insulin Aspart (Novolog) 0 unit SQ SS PRN; Protocol PRN Reason: Hyperglycemia Last Admin: 01/17/17 21:23 Dose: 2 unit Lidocaine (Anecream5) 1 applic TOP PRN PRN Ondansetron HCl (Zofran) 4 mg IVP Q6H PRN PRN Reason: Nausea Pantoprazole Sodium (Protonix Iv) 40 mg IVP BID ESTER Last Admin: 01/17/17 21:22 Dose: 40 mg Sodium Chloride (Iv Flush) 10 - 80 ml IVF PRN PRN PRN Reason: Flushing Last Admin: 01/17/17 14:51 Dose: 10 ml Sodium Chloride (Normal Saline) 500 ml IV PRN PRN Last Admin: 01/17/17 16:22 Dose: 500 ml Sodium Phosphate (Fleet Enema) 1 enema IN PRN PRN Last Admin: 01/18/17 08:01 Dose: 1 enema Home Medications: Home Medications Medication Instructions Recorded Confirmed Type Albuterol Sulfate [Proair Hfa] 1 puff INH Q4H PRN 01/17/17 01/17/17 History Aspirin [Adult Low Dose Aspirin EC] 81 mg PO DAILY 01/17/17 01/17/17 History Bumetanide Tab [Bumex Tab] 1 mg PO BID 01/17/17 01/17/17 History Carvedilol [Carvedilol] 12.5 mg PO DAILY 01/17/17 01/17/17 History Clopidogrel Bisulfate [Clopidogrel] 75 mg PO DAILY 01/17/17 01/17/17 History Glimepiride [Amaryl] 1 mg PO DAILY 01/17/17 01/17/17 History Levothyroxine Sodium 25 mcg PO ACB 01/17/17 01/17/17 History Multivitamin [Multivitamins] 1 cap PO DAILY 01/17/17 01/17/17 History Monrovia-3 Fatty Acids [Monrovia-3] 3,000 mg PO DAILY 01/17/17 01/17/17 History Potassium Chloride [Klor-Con 10] 5 meq PO DAILY 01/17/17 01/17/17 History Spironolactone [Aldactone] 25 mg PO DAILY 01/17/17 01/17/17 History Is Patient on Beta Erasmo?: Yes Beta Erasmo Last Dose Date/Time: non since admission to hospital. Patient is NPO - Medical History Respiratory: Reports: Chronic Obstructive Pulmonary Disease (COPD) (oxygen at night) Cardiovascular: Reports: Congestive Heart Failure (history ), Coronary Artery Disease (CABG in the 's), Hypertension, High Cholesterol, Myocardial Infarction Neuro/Musculoskeletal: Reports: Other (confusion, s/p left CEA.) Renal/Endocrine: Reports: Diabetes Mellitus Type 2, Renal Failure, Other (anemia ) - Surgical History HEENT Surgeries: Reports: Eye Surgery Cardiac Surgeries/Treatments: Reports: Coronary Artery Bypass Graft (5) Respiratory Surgery/Treatments: Reports: Oxygen Administration GI Surgery/Treatments: Reports: Colonoscopy (2006) Anesthesia Reactions: None Hx Family Anesthesia Reaction: No History of Motion Sickness: No - Social History Smoking Status: Current every day smoker Pack-years: 60 Hx Chewing Tobacco Use: No Second Hand Exposure: No Time spent discussing smoking cessation with patient: 3 to 10 minutes Substance Use Type: does not use Alcohol Intake Frequency: does not drink Last Drink: unknown - Pertinent Findings Laboratory: CBC and BMP 01/18/17 04:25 01/18/17 04:25 BMP 01/18/17 04:25 Sodium 139 Potassium 5.0 Chloride 104 Carbon Dioxide 27 BUN 43.0 H Creatinine 1.9 H D Glucose 99 Calcium 8.6 - Physical Exam Respiratory Exam: Present: lungs clear, bilateral breath sounds equal Cardiovascular Exam: Present: irregularly irregular - Airway Assessment Mallampati Score: II TMD: 3 Fingerbreadths Neck Extension: fair Teeth: chipped teeth/crowns, poor dentation Overall Assessment: no airway concerns - ASA ASA Score: 3 - Plan Anesthesia: General TIVA - Discussion Discussion: Discussed risks/options/alternatives of anesthesia and questions answered. Patient consents. Nursing pain assessment noted. Present for Discussion: family member Attestation Statement: Prior to the delivery of any anesthetic medication, I examined the patient, developed the plan, obtained the patient's consent and discussed the risk and benefits of the procedure with the patient/guardian. - Additional Information Seen by Anesthesia: Yes
[2017-01-18] MEDS ORDERED: PROPOFOL 500 MG/50 ML VIAL IV ONE (10:25)
[2017-01-18] MEDS: GUAIFENESIN/D-METHORPHAN 600mg/30mg TABLET PO SCH ×2 (10:38→21:05)
[2017-01-18] MEDS: PANTOPRAZOLE 40 MG INJECTION IVP SCH ×2 (10:39→21:04)
--- NOTE | 2017-01-18 11:16 | General Surgery Procedure Note ---
Date of Procedure: 01/18/17 Surgeon: Kevin Postoperative Diagnosis: Anemia Procedure: EGD and total colonoscopy with polypectomy. Estimated Blood Loss: See Anesthesia Record.
[2017-01-18] MEDS ORDERED: IRON DEXTRAN COMPLEX 100mg/2ml INJECTION IVP ONE (13:30)
--- NOTE | 2017-01-18 14:18 | Operative Note ---
DATE OF OPERATION 01/18/2017 PREOPERATIVE DIAGNOSES 1. Symptomatic anemia. 2. Hemoccult positive stool. POSTOPERATIVE DIAGNOSES 1. Symptomatic anemia. 2. Hemoccult positive stool . 3. Gastric erosion. 4. Colonic diverticulosis. 5. Rectal polyp. OPERATION Esophagogastroduodenoscopy and total colonoscopy with polypectomy SURGEON Shaka Brown MD ANESTHESIA TIVA ASA CLASS 3 FINDINGS The mucosa was normal throughout the esophagus. There was no distal esophagitis. There were no esophageal erosions or ulcers. There were no Snyder's esophagus changes at the esophagus. The patient did have one single small gastric erosion at the prepyloric gastric antrum area. Gastric mucosa was otherwise normal. There was no gastritis. There were no gastric ulcers. There was no duodenitis. There were no duodenal erosions or ulcers. There was no bright red blood or old blood anywhere at the upper gastrointestinal tract. No source for bleeding which would lead to anemia was seen at the upper gastrointestinal tract. No source for bleeding which would lead to a Hemoccult positive stool was found at the upper gastrointestinal tract. There were no colon or rectal tumors. The patient did have one small polyp at the rectum. There were no colon polyps. There were no colonic angiodysplasia lesions. There was no melanosis coli. There was no inflammatory bowel disease. The patient does have some colonic diverticulosis. No bright red blood or old blood was seen anywhere at the colon or rectum. No obvious source for bleeding which would lead to anemia or Hemoccult positive stool was seen at the colon or rectum. The rectal polyp was located at the proximal rectum. DESCRIPTION OF OPERATION The patient was brought to the endoscopy room. The patient was placed on a cart in the endoscopy room. Topical anesthesia was achieved at the oropharynx in the usual manner. The patient was placed in left lateral recumbent position on the cart. The patient was premedicated with intravenous sedation medication administered by the nurse medical office assistant instructor. The Olympus upper GI endoscope was used. The upper GI endoscope was introduced into the esophagus. The upper GI endoscope was advanced down through the esophagus and stomach and into the duodenum. The upper GI endoscope was withdrawn from the duodenum back into the stomach. The upper GI endoscope was retroflexed and the gastroesophageal junction was viewed from below. The upper GI endoscope was straightened out. Stomach was examined further. The endoscopic biopsy forceps was used to obtain a sample of prepyloric antral gastric mucosa which was submitted for DEVIKA test studies. The upper GI endoscope was then withdrawn out through the stomach and esophagus and removed from the patient. The patient was kept in left lateral recumbent position on the cart in the endoscopy room. The patient continued to receive intravenous sedation medication administered by the nurse medical office assistant instructor. Total colonoscopy was performed. The Olympus colonoscope was used. The colonoscope was introduced into the rectum. The colonoscope was advanced up through the rectum and colon all the way up to the cecum. The appendiceal orifice was visualized. The ileocecal valve was visualized. The colonoscope was then withdrawn out through the colon. As the colonoscope was withdrawn all the way out through the colon and all the way down to the rectum, a polyp was identified at the rectum. This polyp was removed with the electrocautery snare device and retrieved and submitted as a specimen for study by the pathologist. The colonoscope was then withdrawn the remainder of the way out through the rectum and removed from the patient. Digital rectal examination was performed. Findings throughout procedure were as described above. The patient did continue to receive intravenous sedation medication administered by the nurse medical office assistant instructor throughout the operation. The patient did tolerate the operation well. cc: Dr. Bradley HENRY
[2017-01-18] MEDS: SALINE FLUSH 10ml SYRINGE IVF PRN (14:33)
[2017-01-18] MEDS ORDERED: NS IV ONE (15:00)
[2017-01-18] MEDS ORDERED: IRON DEXTRAN IV ONE (15:00)
--- NOTE | 2017-01-18 16:04 | Echocardiogram ---
DATE OF PROCEDURE January 18, 2017 REFERRING PHYSICIAN Ho Francis MD This is a two-dimensional echo with spectral Doppler, color-flow and M-mode. It was obtained in a patient with congestive heart failure and hypoxia. Left atrium is dilated. Left ventricle end-diastolic dimension is increased. Left ventricle wall thickness is normal. LV systolic function is reduced with severe global hypokinesia with ejection fraction of about 20%. Right atrium is dilated. Right ventricle is normal. Aortic root dimension is normal. Mitral valve annulus is heavily calcified. Mitral valve leaflets are sclerotic with no stenosis. Mild mitral regurgitation is present. Aortic valve shows fibrocalcific changes with no stenosis or insufficiency. Tricuspid valve shows mild tricuspid regurgitation with moderate pulmonary hypertension with estimated pulmonary artery systolic pressure of 51. Pulmonary valve shows mild pulmonary insufficiency. There is no pericardial effusion. Interatrial septum shows flow across the septum going from left to right suggestive of atrioseptal defect. IMPRESSION 1. Severe global hypokinesia with ejection fraction of about 20%. 2. Atrioseptal defect. 3. Biatrial dilation. 4. Left ventricular dilation. 5. Mitral annulus calcification with mitral sclerosis and mild mitral regurgitation. 6. Aortic sclerosis. 7. Mild tricuspid regurgitation with moderate pulmonary hypertension with estimated pulmonary artery systolic pressure of 51. 8. Mild pulmonary insufficiency. MTDD
--- NOTE | 2017-01-18 17:02 | Progress Note ---
Subjective: F/U: Anemia, ? GI Bleed Tolerated EGD and colonoscopy today. Encephalopathy once back to room-not wanting to stay, not wanting to continue with treatments. Did check on patient and visit with his and son at that time. With time, theses thought did decrease. Agreeable to staying overnight. Did do well with lunch after scopes. No nausea or ab pain. Breathing about the same-some SOA/cough and needing O2. Objective Vital signs: Temperature 98.1 F 01/18/17 11:50 Pulse Rate 74 01/18/17 16:16 Respiratory Rate 18 01/18/17 11:50 Blood Pressure 110/67 01/18/17 16:16 Pulse Oximetry 92 01/18/17 16:16 Rhythm: Atrial Fibrillation with Normal Ventricular Rate Height/Weight/BMI: Height 1.75 m Weight 71.8 kg Body Mass Index 23.6 - Constitutional Present: well nourished, well developed - Routine HEENT Exam Head: Present: normocephalic, atraumatic Eye: Present: EOMI, PERRL ENT: Present: mucous membranes moist - Routine Respiratory Exam Present: decreased breath sounds, distant breath sounds, diminished air movement. Absent: rhonchi, wheezes - Routine Cardiovascular Exam Present: irregular rhythm, irregularly irregular - Routine Abdominal Exam Present: soft, normoactive bowel sounds, non distended, non tender - Routine Extremities Exam Present: edema (+2 BLE ). Absent: cyanosis, clubbing Comments: SCD in place - Routine Musculoskeletal Exam Musculoskeletal: Present: no clubbing or cyanosis, normal strength - Routine Skin Exam Present: intact, dry, warm - Routine Neurological Exam Present: alert, CN II-XII intact. Absent: motor deficit - Routine Psychiatric Exam Comments: Less agitated than earlier. Thoughts more organized Results - Labs CBC & Chem 7: 01/18/17 04:25 01/18/17 04:25 Microbiology Results: Microbiology 01/17/17 14:59 Sputum, Expectorated Gram Stain - Final 01/17/17 14:59 Sputum, Expectorated Sputum Culture - Preliminary Early growth Assessment and Plan (1) Anemia Problem details: ETIOLOGY UNCLEAR Current visit: No Status: Acute (2) GI bleed Current visit: Yes Status: Suspected DVT Prophylaxis: SCD's GI Prophylaxis: Protonix Resuscitation Status: Full Code Assessment and Plan: ASSESSMENT GI bleed, acute. 9/12: EGD and colonoscopy without evidence for source of blood loss. Symptomatic anemia, acute. 01/17: Transfused 1 unit pRBC. A-fib, chronic. Anticoagulation with Coumadin, chronic. On hold secondary to significant anemia. COPD with hypoxia and oxygen dependence, chronic. Mild pulmonary HTN Chronic respiratory insufficiency - Was set up for home O2 continuously by Dr Huerta. CHF, chronic. * Echo 12/04/15 revealed EF 45% with mild global hypokinesia, mild MR, mild TR, mild pulmonary hypertension with estimated pulmonary artery systolic pressure at 35, mild pulmonary insufficiency. * Repeat Echo showing EF of 20% Type II Diabetes, chronic. Hypothyroid, chronic. Hypertension, chronic. Hyperlipidemia, chronic. Kidney Disease, Stage III, chronic. * Baseline SCr ~ 2.0; Scr 1.89 on 10/07/16, SCr 2.38 on 01/12/17. ASCVD with history of prior NC, chronic. Tobacco dependency Acute encephalopathy post EDG/Colonoscopy Concern about possible dementia - small vessel disease with his CAD. Plan Will give IV iron infusion due to iron deficiency. Start oral iron and Vit C with breakfast. IVF stopped due to significant decrease of EF. Restart Bumex, but initial 1mg IV BID. Increase Coreg - continue 12.5mg in am and add 6.25mg with evening meal. Trial of lisinopril 2.5mg nightly - need to be very cautious with this as potassium at upper level of normal and has CKD. Creatinine 1.9 this am. Will continue with IV Protonix, but not seeing need for this in outpatient setting. Continue to hold Coumadin for now - concern about further anemia/blood loss if restarted. Continue Mucinex and neb treatments due to COPD. Avoid Benzos due to encephalopathy he had post procedure. Recheck CBC in am due to anemia - improved to 9.3 this am. Repeat BMP in am due to CKD and medication use. Discussed care at length with family. Time spent with patient care 35 minutes. - Time spent with patient greater than 35 minutes Sepsis Assessment - Evaluation Sepsis screening result: No Definite Risk Hospital Course Summary Disclaimer: The visit summary below is not to be considered part of the above Progress Note. Hospital Course: 01/17/17 - ADMIT. ASSESSMENT Symptomatic anemia, acute. Suspect acute GI bleed. A-fib, chronic. Anticoagulation with Coumadin, chronic. COPD with hypoxia and oxygen dependence, chronic. CHF, chronic. * Echo 12/04/15 revealed EF 45% with mild global hypokinesia, mild MR, mild TR, mild pulmonary hypertension with estimated pulmonary artery systolic pressure at 35, mild pulmonary insufficiency. Type II Diabetes, chronic. Hypothyroid, chronic. Hypertension, chronic. Hyperlipidemia, chronic. Kidney Disease, Stage III, chronic. * Baseline SCr ~ 2.0; Scr 1.89 on 10/07/16, SCr 2.38 on 01/12/17. ASCVD with history of prior NC, chronic. PLAN Patient admitted to inpatient status under the care of Dr. Francis. Consult Dr. Brown for surgical evaluation and anticipate endoscopy tomorrow 01/18 to evaluate for GI bleed. Will obtain serial hemoglobins. Type and crossed in ED with 2 units pending. Will hold off on giving as hemoglobin is >8.0 and appears to be trending up. Initiate Protonix 40mg BID for GI protection. Initiate NS 100cc/hr for fluid resuscitation and hydration in light of NPO status in preparation for anticipated endoscopy tomorrow. Monitor daily weight and I&O closely as patient has history of CHF. Last echocardiogram in 11/2015 revealed EF of 45%. Chronic anticoagulation with Coumadin secondary to chronic a -fib. Will hold Coumadin and aspirin now in light of GI bleed. Monitor cardiac function closely on telemetry. SCDs for DVT prophylaxis. INR on admission was 1.42. Recheck INR in AM. Increased dyspnea on presentation with hypoxia noted in ED (SAO2 83% RA). Titrate oxygen as needed to maintain SAO2 > 90%. He has a history of COPD with documented daytime hypoxia since December 2016 as well as history of CHF and has home oxygen. Will obtain CXR now in light of current cough and hypoxia. Encourage incentive spirometry for pulmonary toileting. Will try and obtain sputum culture as patient reports chest congestion. May consider echocardiogram as last one was in 11/2015. He states that he was seen by Dr. Wise (cardiology) last week and was told " every this is fine". DuoNeb QID and Q4Hr for dyspnea. Will hold oral home medications in light of NPO status. Sliding scale insulin as needed for hyperglycemia. Monitor blood sugars closely. Patient is unaware of any previous A1c readings. Clinic records reviewed with not A1c noted in last 3 months. Will obtain A1c now. Smoking cessation counselling provided. Discussed at length, with nursing present, patient's code status wishes. At this time, he wishes to be a FULL CODE. Upon discharge, patient's care will be returned to his PCP, Dr. Huerta. Hemoglobin recheck after admission and decrease to 8.0. Transfusion of 1 unit pRBC ordered due to his CAD, CHF, and hypoxia. 01/18/17 Underwent EGD and colonoscopy - no definitive source for blood loss identified. Did developed encephalopathy post procedure. Echo report obtained - EF 20%. Will give IV iron infusion due to iron deficiency. Start oral iron and Vit C with breakfast. IVF stopped due to significant decrease of EF. Restart Bumex, but initial 1mg IV BID. Increase Coreg - continue 12.5mg in am and add 6.25mg with evening meal. Trial of lisinopril 2.5mg nightly - need to be very cautious with this as potassium at upper level of normal and has CKD. Creatinine 1.9 this am. Will continue with IV Protonix, but not seeing need for this in outpatient setting. Continue to hold Coumadin for now - concern about further anemia/blood loss if restarted. Continue Mucinex and neb treatments due to COPD. Avoid Benzos due to encephalopathy he had post procedure. Recheck CBC in am due to anemia - improved to 9.3 this am. Repeat BMP in am due to CKD and medication use.
[2017-01-18] MEDS ORDERED: CARVEDILOL 6.25 MG TABLET PO SCH (17:30)
[2017-01-18] MEDS: INSULIN ASPART 100unit/ml INJECTION SQ PRN ×2 (17:55→22:02)
[2017-01-18] MEDS: BUDESONIDE INH.SOLN 0.5mg/2ml NEB AEROSOL SCH (19:30)
[2017-01-18] MEDS ORDERED: LISINOPRIL 2.5 MG TABLET PO SCH (21:00)
[2017-01-19] MEDS ORDERED: LEVOTHYROXINE 25 MCG TABLET PO SCH (06:30)
[2017-01-19] MEDS ORDERED: GLIMEPIRIDE 1 MG TABLET PO SCH (08:00)
[2017-01-19] MEDS ORDERED: ASCORBIC ACID 500 MG TABLET PO SCH (08:00)
[2017-01-19] MEDS ORDERED: FERROUS SULFATE 324 MG TABLET PO SCH (08:00)
[2017-01-19] MEDS ORDERED: CARVEDILOL 12.5 MG TABLET PO SCH (08:00)
[2017-01-19] MEDS: PANTOPRAZOLE 40 MG INJECTION IVP SCH (08:41)
[2017-01-19] MEDS: GUAIFENESIN/D-METHORPHAN 600mg/30mg TABLET PO SCH (08:42)
[2017-01-19] MEDS: BUDESONIDE INH.SOLN 0.5mg/2ml NEB AEROSOL SCH (08:52)
[2017-01-19] MEDS: ALBUTEROL/IPRATROPIUM 2.5mg-0.5mg/3ml NEB AEROSOL SCH ×3 (08:52→15:03)
[2017-01-19] MEDS ORDERED: SPIRONOLACTONE 25 MG TABLET PO SCH (09:00)
[2017-01-19] MEDS ORDERED: MULTI-VITAMIN + MINERAL TABLET PO SCH (09:00)
[2017-01-19] MEDS ORDERED: OMEGA-3 ACID ESTERS 1 GM CAPSULE PO SCH (09:00)
--- NOTE | 2017-01-19 12:15 | Progress Note ---
Subjective: F/U; Symptomatic anemia Doing better today-cooperative. Does have some forgetfulness, but feels at baseline. Breathing stable. Not feeling dizzy or unsteady when up. Ambulating at baseline. Eating well. No n/v. No chest pain. Objective Vital signs: Temperature 97.3 F 01/19/17 08:00 Pulse Rate 70 01/19/17 12:00 Respiratory Rate 24 01/19/17 08:52 Blood Pressure 112/63 01/19/17 08:00 Pulse Oximetry 91 01/19/17 08:52 Rhythm: Atrial Fibrillation with Normal Ventricular Rate Height/Weight/BMI: Height 1.75 m Weight 70 kg Body Mass Index 23.6 - Constitutional Present: no acute distress, well nourished, well developed - Routine HEENT Exam Head: Present: normocephalic, atraumatic Eye: Present: EOMI, PERRL ENT: Present: mucous membranes moist - Routine Respiratory Exam Present: decreased breath sounds, distant breath sounds, diminished air movement. Absent: respiratory distress, wheezes, crackles - Routine Cardiovascular Exam Present: irregular rhythm, irregularly irregular - Routine Abdominal Exam Present: soft, normoactive bowel sounds, non distended, non tender - Routine Extremities Exam Present: no edema, pulses intact. Absent: cyanosis, clubbing - Routine Musculoskeletal Exam Musculoskeletal: Present: no clubbing or cyanosis, normal strength - Routine Skin Exam Present: intact, dry, warm - Routine Neurological Exam Present: alert, CN II-XII intact, vision grossly intact, hearing grossly intact - Routine Psychiatric Exam Present: normal affect, cooperative. Absent: anxious, agitated Results - Labs CBC & Chem 7: 01/19/17 04:27 01/19/17 04:27 Microbiology Results: Microbiology 01/18/17 10:42 Gastric Biopsy Helicobacter pylori Rapid Urease - Final 01/17/17 14:59 Sputum, Expectorated Gram Stain - Final 01/17/17 14:59 Sputum, Expectorated Sputum Culture - Final Normal Respiratory Linda Assessment and Plan (1) Anemia Problem details: ETIOLOGY UNCLEAR Current visit: No Status: Acute (2) GI bleed Current visit: Yes Status: Suspected DVT Prophylaxis: SCD's GI Prophylaxis: Protonix Assessment and Plan: ASSESSMENT GI bleed, acute. 01/18: EGD and colonoscopy without evidence for source of blood loss. Symptomatic anemia, acute. 01/17: Transfused 1 unit pRBC. A-fib, chronic. Anticoagulation with Coumadin, chronic. On hold secondary to significant anemia. COPD with hypoxia and oxygen dependence, chronic. Mild pulmonary HTN Chronic respiratory insufficiency - Was set up for home O2 continuously by Dr Huerta. CHF, chronic. * Echo 12/04/15 revealed EF 45% with mild global hypokinesia, mild MR, mild TR, mild pulmonary hypertension with estimated pulmonary artery systolic pressure at 35, mild pulmonary insufficiency. * Repeat Echo showing EF of 20% Type II Diabetes, chronic. Hypothyroid, chronic. Hypertension, chronic. Hyperlipidemia, chronic. Kidney Disease, Stage III, chronic. * Baseline SCr ~ 2.0; Scr 1.89 on 10/07/16, SCr 2.38 on 01/12/17. ASCVD with history of prior [place], chronic. Tobacco dependency Acute encephalopathy post EDG/Colonoscopy Concern about possible dementia - small vessel disease with his CAD. Plan Hemoglobin 8.6 this am. No signs of GI blood loss. Creatinine stable at 1.9. Potassium normal at 3.9. Clinically improving. Did discuss with about possibility of dementia. Advised signs to watch for. Patient wanting to go home. With stability in lab and symptoms, do feel this is reasonable. Continue lisinopril at 2.5mg nightly. Coreg increased to 12.5 in am with 6.25 at evening meal. Continue spironolactone. Will have patient use Bumex 1mg daily (frequency he was taking at home) - extra dose in afternoon as needed for weight gain/edema. Stop potassium due to use of spironolactone and lisinopril. May restart ASA and Plavix. Would continue to hold on Coumadin due anemia requiring transfusion. With EF 20%, patient has another indication of Coumadin on top of his afib. Potentially could restart Coumadin in the up coming weeks if hemoglobin stable. F/U with Dr Huerta in 1 week: Will need BMP check secondary to medications started Check CBC due to anemia. Could check Vit B12 secondary to memory problems. See orders for discharge details. Discussed care at length with family. Time spent with patient care and discharge greater than 35 minutes. - Time spent with patient discharge greater than 30 minutes Sepsis Assessment - Evaluation Sepsis screening result: No Definite Risk Hospital Course Summary Disclaimer: The visit summary below is not to be considered part of the above Progress Note. Hospital Course: 01/17/17 - ADMIT. ASSESSMENT Symptomatic anemia, acute. Suspect acute GI bleed. A-fib, chronic. Anticoagulation with Coumadin, chronic. COPD with hypoxia and oxygen dependence, chronic. CHF, chronic. * Echo 12/04/15 revealed EF 45% with mild global hypokinesia, mild MR, mild TR, mild pulmonary hypertension with estimated pulmonary artery systolic pressure at 35, mild pulmonary insufficiency. Type II Diabetes, chronic. Hypothyroid, chronic. Hypertension, chronic. Hyperlipidemia, chronic. Kidney Disease, Stage III, chronic. * Baseline SCr ~ 2.0; Scr 1.89 on 10/07/16, SCr 2.38 on 01/12/17. ASCVD with history of prior [place], chronic. PLAN Patient admitted to inpatient status under the care of Dr. Francis. Consult Dr. Brown for surgical evaluation and anticipate endoscopy tomorrow 01/18 to evaluate for GI bleed. Will obtain serial hemoglobins. Type and crossed in ED with 2 units pending. Will hold off on giving as hemoglobin is >8.0 and appears to be trending up. Initiate Protonix 40mg BID for GI protection. Initiate NS 100cc/hr for fluid resuscitation and hydration in light of NPO status in preparation for anticipated endoscopy tomorrow. Monitor daily weight and I&O closely as patient has history of CHF. Last echocardiogram in 11/2015 revealed EF of 45%. Chronic anticoagulation with Coumadin secondary to chronic a -fib. Will hold Coumadin and aspirin now in light of GI bleed. Monitor cardiac function closely on telemetry. SCDs for DVT prophylaxis. INR on admission was 1.42. Recheck INR in AM. Increased dyspnea on presentation with hypoxia noted in ED (SAO2 83% RA). Titrate oxygen as needed to maintain SAO2 > 90%. He has a history of COPD with documented daytime hypoxia since December 2016 as well as history of CHF and has home oxygen. Will obtain CXR now in light of current cough and hypoxia. Encourage incentive spirometry for pulmonary toileting. Will try and obtain sputum culture as patient reports chest congestion. May consider echocardiogram as last one was in 11/2015. He states that he was seen by Dr. Wise (cardiology) last week and was told " every this is fine". DuoNeb QID and Q4Hr for dyspnea. Will hold oral home medications in light of NPO status. Sliding scale insulin as needed for hyperglycemia. Monitor blood sugars closely. Patient is unaware of any previous A1c readings. Clinic records reviewed with not A1c noted in last 3 months. Will obtain A1c now. Smoking cessation counselling provided. Discussed at length, with nursing present, patient's code status wishes. At this time, he wishes to be a FULL CODE. Upon discharge, patient's care will be returned to his PCP, Dr. Huerta. Hemoglobin recheck after admission and decrease to 8.0. Transfusion of 1 unit pRBC ordered due to his CAD, CHF, and hypoxia. 01/18/17 Underwent EGD and colonoscopy - no definitive source for blood loss identified. Did developed encephalopathy post procedure. Echo report obtained - EF 20%. Will give IV iron infusion due to iron deficiency. Start oral iron and Vit C with breakfast. IVF stopped due to significant decrease of EF. Restart Bumex, but initial 1mg IV BID. Increase Coreg - continue 12.5mg in am and add 6.25mg with evening meal. Trial of lisinopril 2.5mg nightly - need to be very cautious with this as potassium at upper level of normal and has CKD. Creatinine 1.9 this am. Will continue with IV Protonix, but not seeing need for this in outpatient setting. Continue to hold Coumadin for now - concern about further anemia/blood loss if restarted. Continue Mucinex and neb treatments due to COPD. Avoid Benzos due to encephalopathy he had post procedure. Recheck CBC in am due to anemia - improved to 9.3 this am. Repeat BMP in am due to CKD and medication use. 01/19/17 Hemoglobin 8.6 this am. No signs of GI blood loss. Creatinine stable at 1.9. Potassium normal at 3.9. Clinically improving. Did discuss with about possibility of dementia. Advised signs to watch for. Patient wanting to go home. With stability in lab and symptoms, do feel this is reasonable. Continue lisinopril at 2.5mg nightly. Coreg increased to 12.5 in am with 6.25 at evening meal. Continue spironolactone. Will have patient use Bumex 1mg daily (frequency he was taking at home) - extra dose in afternoon as needed for weight gain/edema. Stop potassium due to use of spironolactone and lisinopril. May restart ASA and Plavix. Would continue to hold on Coumadin due anemia requiring transfusion. With EF 20%, patient has another indication of Coumadin on top of his afib. Potentially could restart Coumadin in the up coming weeks if hemoglobin stable. F/U with Dr Huerta in 1 week: Will need BMP check secondary to medications started Check CBC due to anemia. Could check Vit B12 secondary to memory problems. See orders for discharge details.
[2017-01-19 12:21] VITALS: BP 95/49; PULSE 73; RESP 16; TEMP 96.2; O2SAT 90
--- NOTE | 2017-01-19 12:29 | Discharge Summary ---
Discharge Information Date of admission: 01/17/17 13:31 Anticipated date of discharge: 01/19/17 Attending Physician: Ho Francis MD Primary care physician: Immanuel Huerta MD Consults: Dr Brown - Discharge Diagnosis (1) Anemia Status: Acute (2) GI bleed Status: Suspected Discharge Diagnosis: Discharge diagnosis Symptomatic anemia, acute. 01/17: Transfused 1 unit pRBC. 01/18: IV Iron infusion. Associated conditions and complications GI bleed, acute. 01/18: EGD and colonoscopy without evidence for source of blood loss. A-fib, chronic. Anticoagulation with Coumadin, chronic. On hold secondary to significant anemia. COPD with hypoxia and oxygen dependence, chronic. Mild pulmonary HTN Chronic respiratory insufficiency - Was set up for home O2 continuously by Dr Huerta. CHF, chronic. Echo 12/04/15 revealed EF 45% with mild global hypokinesia, mild MR, mild TR, mild pulmonary hypertension with estimated pulmonary artery systolic pressure at 35, mild pulmonary insufficiency. Repeat Echo showing EF of 20% Type II Diabetes, chronic. Hypothyroid, chronic. Hypertension, chronic. Hyperlipidemia, chronic. Kidney Disease, Stage III, chronic. Baseline SCr ~ 2.0; Scr 1.89 on 10/07/16, SCr 2.38 on 01/12/17. ASCVD with history of prior [place], chronic. Tobacco dependency Acute encephalopathy post EDG/Colonoscopy Concern about possible dementia - small vessel disease with his CAD. - Procedures Procedures: DATE OF OPERATION: 01/18/2017 PREOPERATIVE DIAGNOSES 1. Symptomatic anemia. 2. Hemoccult positive stool. POSTOPERATIVE DIAGNOSES 1. Symptomatic anemia. 2. Hemoccult positive stool . 3. Gastric erosion. 4. Colonic diverticulosis. 5. Rectal polyp. OPERATION Esophagogastroduodenoscopy and total colonoscopy with polypectomy - Date of Exam: 01/18/17 Type of Exam: US echo doppler complete Left atrium is dilated. Left ventricle end-diastolic dimension is increased. Left ventricle wall thickness is normal. LV systolic function is reduced with severe global hypokinesia with ejection fraction of about 20%. Right atrium is dilated. Right ventricle is normal. Aortic root dimension is normal. Mitral valve annulus is heavily calcified. Mitral valve leaflets are sclerotic with no stenosis. Mild mitral regurgitation is present. Aortic valve shows fibrocalcific changes with no stenosis or insufficiency. Tricuspid valve shows mild tricuspid regurgitation with moderate pulmonary hypertension with estimated pulmonary artery systolic pressure of 51. Pulmonary valve shows mild pulmonary insufficiency. There is no pericardial effusion. Interatrial septum shows flow across the septum going from left to right suggestive of atrioseptal defect. IMPRESSION 1. Severe global hypokinesia with ejection fraction of about 20%. 2. Atrioseptal defect. 3. Biatrial dilation. 4. Left ventricular dilation. 5. Mitral annulus calcification with mitral sclerosis and mild mitral regurgitation. 6. Aortic sclerosis. 7. Mild tricuspid regurgitation with moderate pulmonary hypertension with estimated pulmonary artery systolic pressure of 51. 8. Mild pulmonary insufficiency. - Laboratory Labs: Admit Lab 01/17/17 10:26 WBC 7.4 Hgb 8.2 L Hct 27.6 L MCV 89.6 Plt Count 188 Admit Lab 01/17/17 10:26 Sodium 141 Potassium 4.7 Chloride 104 Carbon Dioxide 27 BUN 55.0 H* Creatinine 2.1 H GFR Calculation 30 Glucose 159 H Calculated Osmolality 289 H Total Bilirubin 1.00 AST 22 ALT 33 Laboratory Tests 01/17/17 01/18/17 14:52 04:25 Hemoglobin A1c 5.9 L TSH 5.04 H 01/19/17 04:27 01/19/17 04:27 - Microbiology Microbiology 01/18/17 10:42 Gastric Biopsy Helicobacter pylori Rapid Urease - Final 01/17/17 14:59 Sputum, Expectorated Gram Stain - Final 01/17/17 14:59 Sputum, Expectorated Sputum Culture - Final Normal Respiratory Linda - Radiology Radiology: Date of Exam: 01/17/17 Type of Exam: XR chest 1V COMPARISON: December 27, 2016 FINDINGS: Postsurgical changes of median sternotomy and CABG. The heart size is mildly enlarged. There are some hazy interstitial opacities demonstrated bilaterally which may reflect a pulmonary edema associated with CHF. There are small bilateral pleural effusions. There is no pneumothorax. The osseous structures are within normal limits for the patient's age. IMPRESSION: Mild cardiomegaly and congestive changes suggested. Hazy interstitial opacities likely reflecting pulmonary edema. Small bilateral pleural effusions. - Pathology Bx from EGD/Colonoscopy pending at discharge History of Present Illness HPI: Khanh Hartman is a pleasant 81-year-old male who presented to [facility] [place] [facility] emergency department at the suggestion of his PCP, Dr. Huerta, for evaluation of low hemoglobin. History is obtained from the patient as well as prior medical notes and nursing. He reports that in August 2016, he was found unconsciousness in his home in [facility] and was later diagnosed with influenza and pneumonia. He reports that since that time, he has been in and out of the hospital and hasn't felt quite back to normal. He complains of progressive increase in weakness and fatigue with reported increase in sleeping. He also complains of increased dyspnea with exertion. He was seen by Dr. Huerta on 01/12 for a routine exam and INR check and found to have a hemoglobin of 8.6. He was instructed to hold his Coumadin which he takes for his chronic a-fib and start a multivitamin with vitamin K. He had his labs repeated on 12/14 which revealed a decrease in his hemoglobin to 7.6. He was called today with the results and instructed to follow up in the ED for further evaluation. Upon arrival to the ED, vital signs revealed hypertension with blood pressure 142/68, irregular pulse at 92 and pulse ox at 83% room air. Pulse ox improved with supplemental oxygen. He admits to a history of COPD with hypoxia and states that previously he has only needed to use his home oxygen at night but recently he has had increased dyspnea. He was instructed to use his oxygen all day, every day after he was found to have a pulse ox of 85% on room air while at Dr. Huerta office in December. He admits to feeling short of breath today on exam. He admits to central chest congestion and cough every morning and states that once he coughs up his congestion, he breathes fine for the rest of the day. He denies any chest pain, recent fever or chills, abdominal pain, nausea, vomiting, dysuria or hematuria. No hematemesis, melena or hematochezia though he does admit to feeling a little constipated today, which is abnormal for him. Labs were obtained in the ED and revealed anemia with hemoglobin at 8.2. INR was subtherapeutic at 1.42. CMP was relatively unremarkable. BUN was elevated at 55 and SCr was elevated at 2.1. Review of prior medical labs and records reveals that Khanh's baseline SCr is around 2.0-2.1 with known chronic kidney disease. Due to his symptomatic anemia with suspected GI bleed, the hospitalist service was consulted and he was admitted into inpatient status for further evaluation, close monitoring of his hemodynamic stability, IV fluids and surgical consult for anticipated colonoscopy. His length of stay is expected to exceed more than 2 over nights. For complete details of the H&P refer to that document. Objective Vital signs: Temperature 96.2 F L 01/19/17 12:00 Pulse Rate 73 01/19/17 12:00 Respiratory Rate 16 01/19/17 12:00 Blood Pressure 95/49 01/19/17 12:00 Pulse Oximetry 90 01/19/17 12:00 Rhythm: Atrial Fibrillation with Normal Ventricular Rate Height/Weight/BMI: Height 1.75 m Weight 70 kg Body Mass Index 23.6 Hospital Course This is a general summary of the patient's hospital course. For more details refer to the complete medical record. Hospital course: 01/17/17 - ADMIT. ASSESSMENT Symptomatic anemia, acute. Suspect acute GI bleed. A-fib, chronic. Anticoagulation with Coumadin, chronic. COPD with hypoxia and oxygen dependence, chronic. CHF, chronic. * Echo 12/04/15 revealed EF 45% with mild global hypokinesia, mild MR, mild TR, mild pulmonary hypertension with estimated pulmonary artery systolic pressure at 35, mild pulmonary insufficiency. Type II Diabetes, chronic. Hypothyroid, chronic. Hypertension, chronic. Hyperlipidemia, chronic. Kidney Disease, Stage III, chronic. * Baseline SCr ~ 2.0; Scr 1.89 on 10/07/16, SCr 2.38 on 01/12/17. ASCVD with history of prior [place], chronic. PLAN Patient admitted to inpatient status under the care of Dr. Francis. Consult Dr. Brown for surgical evaluation and anticipate endoscopy tomorrow 01/18 to evaluate for GI bleed. Will obtain serial hemoglobins. Type and crossed in ED with 2 units pending. Will hold off on giving as hemoglobin is >8.0 and appears to be trending up. Initiate Protonix 40mg BID for GI protection. Initiate NS 100cc/hr for fluid resuscitation and hydration in light of NPO status in preparation for anticipated endoscopy tomorrow. Monitor daily weight and I&O closely as patient has history of CHF. Last echocardiogram in 11/2015 revealed EF of 45%. Chronic anticoagulation with Coumadin secondary to chronic a -fib. Will hold Coumadin and aspirin now in light of GI bleed. Monitor cardiac function closely on telemetry. SCDs for DVT prophylaxis. INR on admission was 1.42. Recheck INR in AM. Increased dyspnea on presentation with hypoxia noted in ED (SAO2 83% RA). Titrate oxygen as needed to maintain SAO2 > 90%. He has a history of COPD with documented daytime hypoxia since December 2016 as well as history of CHF and has home oxygen. Will obtain CXR now in light of current cough and hypoxia. Encourage incentive spirometry for pulmonary toileting. Will try and obtain sputum culture as patient reports chest congestion. May consider echocardiogram as last one was in 11/2015. He states that he was seen by Dr. Wise (cardiology) last week and was told " every this is fine". DuoNeb QID and Q4Hr for dyspnea. Will hold oral home medications in light of NPO status. Sliding scale insulin as needed for hyperglycemia. Monitor blood sugars closely. Patient is unaware of any previous A1c readings. Clinic records reviewed with not A1c noted in last 3 months. Will obtain A1c now. Smoking cessation counselling provided. Discussed at length, with nursing present, patient's code status wishes. At this time, he wishes to be a FULL CODE. Upon discharge, patient's care will be returned to his PCP, Dr. Huerta. Hemoglobin recheck after admission and decrease to 8.0. Transfusion of 1 unit pRBC ordered due to his CAD, CHF, and hypoxia. 01/18/17 Underwent EGD and colonoscopy - no definitive source for blood loss identified. Did developed encephalopathy post procedure. Echo report obtained - EF 20%. Will give IV iron infusion due to iron deficiency. Start oral iron and Vit C with breakfast. IVF stopped due to significant decrease of EF. Restart Bumex, but initial 1mg IV BID. Increase Coreg - continue 12.5mg in am and add 6.25mg with evening meal. Trial of lisinopril 2.5mg nightly - need to be very cautious with this as potassium at upper level of normal and has CKD. Creatinine 1.9 this am. Will continue with IV Protonix, but not seeing need for this in outpatient setting. Continue to hold Coumadin for now - concern about further anemia/blood loss if restarted. Continue Mucinex and neb treatments due to COPD. Avoid Benzos due to encephalopathy he had post procedure. Recheck CBC in am due to anemia - improved to 9.3 this am. Repeat BMP in am due to CKD and medication use. 01/19/17 Hemoglobin 8.6 this am. No signs of GI blood loss. Creatinine stable at 1.9. Potassium normal at 3.9. Clinically improving. Did discuss with about possibility of dementia. Advised signs to watch for. Patient wanting to go home. With stability in lab and symptoms, do feel this is reasonable. Continue lisinopril at 2.5mg nightly. Coreg increased to 12.5 in am with 6.25 at evening meal. Continue spironolactone. Will have patient use Bumex 1mg daily (frequency he was taking at home) - extra dose in afternoon as needed for weight gain/edema. Stop potassium due to use of spironolactone and lisinopril. May restart ASA and Plavix. Would continue to hold on Coumadin due anemia requiring transfusion. With EF 20%, patient has another indication of Coumadin on top of his afib. Potentially could restart Coumadin in the up coming weeks if hemoglobin stable. F/U with Dr Huerta in 1 week: Will need BMP check secondary to medications started Check CBC due to anemia. Could check Vit B12 secondary to memory problems. See orders for discharge details. DVT Prophylaxis: SCD's GI Prophylaxis: Protonix Discharge Plan - Med Rec/Dispo Referrals/Follow Up: Austen Huerta MD [Family Provider] - 1 Week (Hospital F/U: Check BMP secondary to medication use. Check CBC due to anemia. Consider B12 level due to memory problems.) Shaka Brown MD [Physician] - 2 Weeks (To discussed Bx results. ) Sonja Instructions: Blood Transfusion (GEN) Prescriptions: New Bumetanide Tab [Bumex Tab] 1 mg PO 1500 PRN #30 tablet PRN Reason: edema/weight gain Carvedilol [Coreg] 6.25 mg PO WS tablet Lisinopril [Prinivil] 2.5 mg PO HS #30 tab Continue Wilcox-3 Fatty Acids [Wilcox-3] 3,000 mg PO DAILY Aspirin [Adult Low Dose Aspirin EC] 81 mg PO DAILY Carvedilol 12.5 mg PO DAILY Glimepiride [Amaryl] 1 mg PO DAILY Levothyroxine Sodium 25 mcg PO ACB Albuterol Sulfate [Proair Hfa] 1 puff INH Q4H PRN PRN Reason: Prn Orders Clopidogrel Bisulfate [Clopidogrel] 75 mg PO DAILY Spironolactone [Aldactone] 25 mg PO DAILY Changed Bumetanide Tab [Bumex Tab] 1 mg PO DAILY #0 Discontinued Potassium Chloride [Klor-Con 10] 5 meq PO DAILY No Action Multivitamin [Multivitamins] 1 cap PO DAILY Discharge Instructions/Outpatient Orders: Final Provider Discharge Instructions Location: Determined By Patient - Disposition 01 Discharged Home, Self-Care - Attestation Attestation Narrative: 01/19/17 12:39 I have independently interviewed and examined patient prior to discharge. See my progress note from today for details. Medically stable for discharge to home.
== END 2017-01-19 14:42 | disposition home or self-care (01) | DRG 377 ==
LOC: ED 10:04 → SRG 13:31
PROVIDERS: ADMIT Hospitalist; ATTEND Hospitalist
PROC: END.EGD (2017-01-18 09:50)